=== PATIENT | male | born 1935 | race Caucasian/White ===

== ENCOUNTER → 2016-07-15 | Outpatient (CLI) | payer MEDICARE, BC ==
[2016-07-15 13:42] LABS: Blood Urea Nitrogen 25 mg/dL (9-20); Non-African American GFR(MDRD) 51 (>60 ml/min/1.73 sqM)
--- NOTE | 2016-07-15 16:40 | CT ---
EXAMINATION TYPE: CT abdomen w con DATE OF EXAM: 07/15/2016 4:04 PM COMPARISON: NONE HISTORY: 81-year-old male having right upper quadrant pain for the past few weeks TECHNIQUE: Contiguous axial scanning of the abdomen and pelvis following administration of 100 ml Omn ipaque 300 IV contrast. Delayed images through the kidneys and coronal/sagittal reconstructions perf ormed. CT DLP: 1946.1 mGycm Automated exposure control for dose reduction was used. FINDINGS: Heart is upper limits of normal in size without pericardial effusion. Chronic appearing interstitial changes in the lower lungs suggestive of interstitial fibrosis. No pleural effusion. Liver is borderline to mildly enlarged measuring 18.6 cm craniocaudal. No focal liver lesion is seen. Portal venous system is patent. No biliary ductal dilatation. Cystic change at the gallbladder fundus could represent a phrygian cap or area of adenomyomatosis. Adrenal glands, spleen, and atrophic pancreas show no gross abnormality. There is delayed excretion of contrast from the kidneys which will require correlation with patient's kidney function. Suspect bilateral parapelvic cysts. There is renal cortical thinning compatible wit h chronic medical renal disease. No dilated small bowel, free fluid, or free air. No mesenteric or retroperitoneal lymphadenopathy. There is moderate overall stool burden without pericolonic inflammatory change. Tiny fatty umbilical hernia. There is a small 8 mm chronic-appearing calcified focus along the anterior omentum. There is some nonspecific soft tissue stranding about the celiac axis and suggestion of some slight s oft tissue thickening along the common hepatic artery, axial images 30 and 31, coronal images 45 thro ugh 47, and sagittal images 62 through 72. There has been prior endovascular aorto biiliac stent graft. Lumens are patent. Bones: Degenerative changes of both SI joints and throughout the lumbar spine with grade 1 anterolist hesis at L4-L5. There may be sequestered disc fragment posterior to the L1 vertebral body. IMPRESSION: 1. BORDERLINE TO MILD HEPATOMEGALY. 2. THERE IS SOME NONSPECIFIC SOFT TISSUE DENSITY AROUND THE CELIAC AXIS EXTENDING ALONG THE COMMON HE PATIC ARTERY. THE CLINICAL SIGNIFICANCE IS UNCERTAIN BUT FINDINGS CAN BE SEEN IN THE SETTING OF A MED IUM VESSEL VASCULITIS. CLINICALLY CORRELATE. 3. DELAYED EXCRETION OF CONTRAST FROM THE KIDNEYS. CORRELATE WITH PATIENT'S KIDNEY FUNCTION TO EXCLUD E RICKY/CONTRAST-INDUCED NEPHROPATHY. SUSPECTED BILATERAL PARAPELVIC CYSTS. 4. MODERATE STOOL BURDEN. 5. POSSIBLE EXTRUDED AND SEQUESTERED DISC FRAGMENT POSTERIOR TO L1.
== END | disposition home or self-care (01) ==
LOC: RADCTMAIN 13:02
PROVIDERS: ATTEND Family Medicine
DX: R16.0 Hepatomegaly, not elsewhere classified (principal)
CPT/HCPCS: 82565; 84520; 74160; 36415; Q9967

== ENCOUNTER → 2018-08-23 | Outpatient (CLI) | payer MEDICARE ==
--- NOTE | 2018-08-23 14:54 | CT ---
EXAMINATION TYPE: CT chest wo con DATE OF EXAM: 08/23/2018 COMPARISON: EXAMINATION TYPE: CT chest wo con DATE OF EXAM: 08/23/2018 COMPARISON: CT of the abdomen 07/15/2016 HISTORY: Pulmonary nodule. CT DLP: 600.[address] of the chest was performed with lung and mediastinal window settings submitted. The la ck of contrast limits evaluation of the vascular, mediastinal and parenchymal structures including th e upper abdomen. LUNGS: The lungs are clear and free of infiltrate. No atelectasis. Right basilar pulmonary nodule is essentially unchanged measuring 7 mm currently versus 7 mm previously. No additional nodules or amaris s are identified. There is no evidence for infiltrate or atelectasis. No pleural effusion is identifi ed. There is moderate subpleural fibrosis identified throughout both lung cormier greatest within the upper lobes. There is mild bronchiectasis noted as well. No pleural effusion. No CT evidence of inte rstitial lung disease. MEDIASTINUM/HAILY: Ascending thoracic aortic aneurysm measuring 4.4 cm AP dimension. Coronary artery c alcifications. Mild cardiomegaly. No evidence for mediastinal mass. No lymph nodes greater than 1cm . UPPER ABDOMEN: Aortic stent graft partially imaged. Bilateral parapelvic renal cysts noted. OTHER: No significant other abnormality. IMPRESSION: 1. Stable right lower lobe pulmonary nodule. 2. Subpleural fibrosis.
== END | disposition home or self-care (01) ==
LOC: RADCTMAIN 13:32
PROVIDERS: ATTEND Family Medicine
DX: R91.1 Solitary pulmonary nodule (principal); J84.10 Pulmonary fibrosis, unspecified
CPT/HCPCS: 71250

== ENCOUNTER 2021-10-28 10:50 | Inpatient (IN) | payer MEDICARE ==
--- NOTE | 2021-10-28 13:41 | ED ---
General Adult HPI - General Chief complaint: Skin/Abscess/Foreign Body Stated complaint: L foot wound Time Seen by Provider: 10/28/21 13:30 Source: patient, RN notes reviewed, old records reviewed Mode of arrival: wheelchair Limitations: no limitations - History of Present Illness Initial comments: 86-year-old male presents to the emergency room with complaints of left foot ulcer worsening with drainage. He was sent by his doctor after wound treatment today for admission. Patient states he has no pain unless you push on the wounds. He denies any fevers, no nausea vomiting diarrhea, no chest pain or difficulty breathing. He states this has been ongoing wound for several months. He denies any recent antibiotic use. -: month(s) Location: left, lower extremity (foot) Radiation: non-radiation Severity scale (1-10): 0 Consistency: intermittent Improves with: immobilization Worsens with: other (palpation) Associated Symptoms: denies other symptoms Treatments Prior to Arrival: other (dressing change by doctor today) - Related Data Home Medications Medication Instructions Recorded Confirmed Apixaban [Eliquis] 2.5 mg PO DAILY 10/28/21 10/28/21 Furosemide [Lasix] 40 mg PO DAILY 10/28/21 10/28/21 HYDROcodone/APAP 7.5-325MG [[place] 1 tab PO Q12H PRN 10/28/21 10/28/21 7.5-325] Losartan Potassium 100 mg PO DAILY 10/28/21 10/28/21 Rosuvastatin [Crestor] 10 mg PO HS 10/28/21 10/28/21 amLODIPine [Norvasc] 10 mg PO DAILY 10/28/21 10/28/21 sitaGLIPtin [Januvia] 100 mg PO DAILY 10/28/21 10/28/21 Allergies Allergy/AdvReac Type Severity Reaction Status Date / Time nickel Allergy Unknown Verified 10/28/21 14:10 Sulfa (Sulfonamide Allergy Unknown Verified 10/28/21 14:10 Antibiotics) Review of Systems ROS Statement: Those systems with pertinent positive or pertinent negative responses have been documented in the HPI. ROS Other: All systems not noted in ROS Statement are negative. Past Medical History Past Medical History: Atrial Fibrillation, Diabetes Mellitus, Hypertension Additional Past Medical History / Comment(s): AAA History of Any Multi-Drug Resistant Organisms: None Reported Past Surgical History: Appendectomy, Orthopedic Surgery Additional Past Surgical History / Comment(s): abdominal stents from AAA Past Psychological History: No Psychological Hx Reported Smoking Status: Current every day smoker Past Alcohol Use History: None Reported Past Drug Use History: None Reported General Exam Limitations: no limitations General appearance: alert, in no apparent distress Neck exam: Absent: tenderness, meningismus Respiratory exam: Absent: respiratory distress, accessory muscle use Cardiovascular Exam: Present: regular rate Left Foot/Toe exam: Present: tenderness, erythema (Irregularly-shaped ulceration to the mid foot measuring approximately 5 cm x 4 cm; halux of great toe and second digit ulcers 1cm; dried scaled ulceration left lateral metatarsal 1cm) Neurovascular tendon exam: Absent: abnormal cap refill, extremity cold to touch, pallor, foot drop Neurological exam: Present: alert, oriented X3 Psychiatric exam: Present: normal affect, normal mood Skin exam: Present: warm, dry. Absent: cyanosis, diaphoretic, petechiae, pallor Course Vital Signs 10/28/21 10:57 Temperature 98.1 F Pulse Rate 80 Respiratory 14 Rate Blood Pressure 127/61 O2 Sat by Pulse 95 Oximetry Medical Decision Making - Medical Decision Making Vital signs are stable with no evidence of sepsis. Patient denies any fevers, nausea or vomiting. X-ray shows soft tissue edema of dorsal surface of left foot. There is no acute fracture noted however there are erosive changes involving the distal phalanx of the second digit suggestive of osteomyelitis. Patient was started on antibiotics in the ER. Infectious disease was placed on consult. Case discussed with Dr. Lloyd. - Lab Data Result diagrams: 10/28/21 14:17 10/28/21 14:17 Lab Results 10/28/21 10/28/21 Range/Units 14:17 14:17 WBC 8.1 (3.8-10.6) k/uL RBC 3.48 L (4.30-5.90) m/uL Hgb 10.8 L (13.0-17.5) gm/dL Hct 33.6 L (39.0-53.0) % MCV 96.5 (80.0-100.0) fL MCH 31.2 (25.0-35.0) pg MCHC 32.3 (31.0-37.0) g/dL RDW 16.6 H (11.5-15.5) % Plt Count 204 (150-450) k/uL MPV 8.4 Neutrophils % 71 % Lymphocytes % 15 % Monocytes % 7 % Eosinophils % 3 % Basophils % 0 % Neutrophils # 5.8 (1.3-7.7) k/uL Lymphocytes # 1.2 (1.0-4.8) k/uL Monocytes # 0.6 (0-1.0) k/uL Eosinophils # 0.2 (0-0.7) k/uL Basophils # 0.0 (0-0.2) k/uL Hypochromasia Slight Anisocytosis Slight Macrocytosis Slight Sodium 141 (137-145) mmol/L Potassium 4.8 (3.5-5.1) mmol/L Chloride 109 H (98-107) mmol/L Carbon Dioxide 26 (22-30) mmol/L Anion Gap 6 mmol/L BUN 38 H (9-20) mg/dL Creatinine 1.95 H (0.66-1.25) mg/dL Est GFR (CKD-EPI)AfAm 35 (>60 ml/min/1.73 sqM) Est GFR (CKD-EPI)NonAf 30 (>60 ml/min/1.73 sqM) Glucose 99 (74-99) mg/dL Calcium 8.5 (8.4-10.2) mg/dL Total Bilirubin 1.1 (0.2-1.3) mg/dL AST 31 (17-59) U/L ALT 14 (4-49) U/L Alkaline Phosphatase 85 (38-126) U/L Total Protein 7.6 (6.3-8.2) g/dL Albumin 3.8 (3.5-5.0) g/dL Disposition Clinical Impression: Osteomyelitis of toe of left foot Disposition: ADMITTED IP TO THIS [facility] Referrals: Varghese Nielson MD [Primary Care Provider] - 1-2 days Decision Date: 10/28/21 Decision Time: 14:30
--- NOTE | 2021-10-28 14:03 | XR ---
EXAMINATION TYPE: XR foot complete LT DATE OF EXAM: 10/28/2021 COMPARISON: NONE HISTORY: Soft tissue ulceration and edema TECHNIQUE: Three views are submitted. FINDINGS: The osseous structures are intact. There is no acute fracture or dislocation. Joint spaces are p reserved. Soft tissue edema with deformities along the dorsal surface of the soft tissue correlate fo r ulcerations. Calcaneal spurs are seen. Arthropathy of all MTP joints. No acute fracture. There is e rosive change involving the distal phalanx of the second digit. IMPRESSION: 1. Erosive change distal phalanx second digit suggestive of osteomyelitis.
[2021-10-28] MEDS ORDERED: VANCOMYCIN IV PER PHARMACY 1 EACH MISC MISCELLANE PRN (14:32)
[2021-10-28 14:46] LABS: Anisocytosis Slight; Basophils % (A) 0 %; Eosinophils # (A) 0.2 k/uL (0-0.7); Eosinophils % (A) 3 %; HCT 33.6 % (39.0-53.0); HGB 10.8 gm/dL (13.0-17.5); Hypochromasia Slight; Lymphocytes # (A) 1.2 k/uL (1.0-4.8); Lymphocytes % (A) 15 %; MCH 31.2 pg (25.0-35.0); MCHC 32.3 g/dL (31.0-37.0); MCV 96.5 fL (80.0-100.0); Macrocytosis Slight; Mean Platelet Volume 8.4; Monocytes # (A) 0.6 k/uL (0-1.0); Monocytes % (A) 7 %; Neutrophils # (A) 5.8 k/uL (1.3-7.7); Neutrophils % (A) 71 %; Platelet Count 204 k/uL (150-450); RBC 3.48 m/uL (4.30-5.90); RDW 16.6 % (11.5-15.5); WBC 8.1 k/uL (3.8-10.6)
[2021-10-28 15:04] LABS: Albumin 3.8 g/dL (3.5-5.0); Calcium 8.5 mg/dL (8.4-10.2); Total Bilirubin 1.1 mg/dL (0.2-1.3); Total Protein 7.6 g/dL (6.3-8.2)
[2021-10-28 15:06] LABS: Potassium 4.8 mmol/L (3.5-5.1)
[2021-10-28] MEDS ORDERED: VANCOMYCIN 2,000 MG in SODIUM CHLORIDE 0.9% 500 ML 500 ML IVPB ONE (15:30)
[2021-10-28] MEDS ORDERED: NALOXONE 0.4 MG/ML 1 ML VIAL IV PRN (15:32)
[2021-10-28] MEDS ORDERED: HYDROmorphone 0.5 MG/0.5 ML SYRINGE IVP PRN (17:05)
[2021-10-28 17:07] LABS: Glucose,Whole Blood 106 mg/dL (70-110)
[2021-10-28] MEDS: INSULIN ASPART (NovoLOG) 100 UNIT/ML VIAL SQ SCH ×2 (17:33→20:17)
[2021-10-28 20:13] LABS: Glucose,Whole Blood 147 mg/dL (70-110)
[2021-10-28] MEDS: ATORVASTATIN 20 MG TAB PO SCH (20:17)
--- NOTE | 2021-10-28 21:53 | HP ---
HISTORY AND PHYSICAL CHIEF COMPLAINT: Pain and swelling of the left foot. HISTORY OF PRESENT ILLNESS: This 86-year-old gentleman with a past medical history of diabetes type 2, hypertension, atrial fibrillation being followed Dr. Nielson in the outpatient setting, was complaining of left foot ulcer. The patient apparently attending Wound Care but the infection spread to the dorsum of the foot with some redness. The patient has also had severe pain and the patient had worsening drainage. The patient was sent to [facility] Emergency Room and the patient was admitted for further evaluation and treatment. There is no history of fever, rigors or chills. PAST MEDICAL HISTORY: History of diabetes, hypertension, atrial fibrillation. HOME MEDICATIONS: Reviewed, which include Januvia, Norvasc. Doses and rest of medication reviewed. ALLERGIES: INCLUDING NICKEL. FAMILY HISTORY: No history of heart disease or strokes. SOCIAL HISTORY: Current smoking. REVIEW OF SYSTEMS: 14 point review of systems is negative except as mentioned earlier. PHYSICAL EXAMINATION: Pulse is 80. Blood pressure is 126/61. Respiratory rate 14. HEENT: Conjunctivae normal. NECK: No JVD. CARDIOVASCULAR: S1, S2 muffled. RESPIRATION: Breath sounds diminished in the bases. No rhonchi. No crackles. ABDOMEN: Soft, obese. NECK: Significant pain and swelling and discharge and ulcer of the left foot with tenderness and cellulitis. SKIN: No ulcers, rashes or bleeding. JOINTS: No active deforming arthropathy. LABS: WBC 8.1, hemoglobin 10.8. IMPRESSION: 1. Diabetic foot, left with possible osteomyelitis with failure of outpatient treatment. 2. Diabetes mellitus, type 2. 3. Chronic kidney disease. 4. Atrial fibrillation, hypertension, history of abdominal aortic aneurysm. 5. Continued ongoing nicotine dependence. RECOMMENDATIONS AND DISCUSSION: This 86-year-old gentleman who presented with multiple complex medical issues, we will initiate intravenous vancomycin and obtain cultures. Infectious Disease evaluation. Resume the home medication. Monitor blood sugars closely. DVT prophylaxis. Symptomatic treatment. Prognosis guarded because of multiple complex medical issues and further recommendations to follow. MMODL / IJN: [id number] /
[2021-10-29] MEDS: HYDROcodone/APAP 7.5-325MG 1 EACH TAB PO PRN (04:50)
[2021-10-29 07:20] LABS: Glucose,Whole Blood 108 mg/dL (70-110)
[2021-10-29] MEDS: INSULIN ASPART (NovoLOG) 100 UNIT/ML VIAL SQ SCH ×4 (07:34→21:41)
[2021-10-29] MEDS: amLODIPine 10 MG TAB PO SCH (08:51)
[2021-10-29] MEDS: APIXABAN 2.5 MG TABLET PO SCH (08:51)
[2021-10-29] MEDS: FUROSEMIDE 40 MG TAB PO SCH (08:51)
[2021-10-29] MEDS: LOSARTAN 50 MG TAB PO SCH (08:51)
[2021-10-29] MEDS: LINAGLIPTIN 5 MG TABLET PO SCH (08:51)
[2021-10-29 09:09] LABS: Basophils # (A) 0.05 X 10*3/uL (0.00-0.10); Basophils % (A) 0.6 %; Eosinophils # (A) 0.25 X 10*3/uL (0.04-0.35); Eosinophils % (A) 2.9 %; HCT 32.9 % (39.6-50.0); Immature Grans, Automated 0.5 %; Lymphocytes # (A) 1.04 X 10*3/uL (0.90-5.00); Lymphocytes % (A) 11.9 %; MCH 29.2 pg (27.0-32.0); MCHC 30.4 g/dL (32.0-37.0); MCV 96.2 fL (80.0-97.0); Mean Platelet Volume 11.4 fL (9.5-12.2); Monocytes # (A) 0.77 X 10*3/uL (0.20-1.00); Monocytes % (A) 8.8 %; NRBC Per 100 WBC 0 /100 WBCS (0.0-0.0); Neutrophils # (A) 6.58 X 10*3/uL (1.80-7.70); Neutrophils % (A) 75.3 %; Platelet Count 207 X 10*3/uL (140-440); RBC 3.42 X 10*6/uL (4.40-5.60); RDW 16.7 % (11.5-14.5); WBC 8.73 X 10*3/uL (4.50-10.00)
[2021-10-29 09:21] LABS: African American GFR (CKD) 33.8 (60.0-200.0); Albumin 3.6 g/dL (3.8-4.9); Albumin/Globulin Ratio 1.16 (1.60-3.17); Anion Gap 10.8 mmol/L (10.00-18.00); BUN/Creat Ratio 17.75 Ratio (12.00-20.00); Blood Urea Nitrogen 35.5 mg/dL (9.0-27.0); C Reactive Protein 1.6 mg/dL (0.00-0.80); Calcium 8.7 mg/dL (8.7-10.3); Carbon Dioxide 25.2 mmol/L (20.0-27.5); Globulin 3.1 g/dL (1.6-3.3); Non-African American GFR(CKD) 29.1 (60.0-200.0); Potassium 4.4 mmol/L (3.5-5.5); Total Bilirubin 0.7 mg/dL (0.30-1.20); Total Protein 6.7 g/dL (6.2-8.2)
[2021-10-29 11:17] LABS: Glucose,Whole Blood 114 mg/dL (70-110)
[2021-10-29 11:53] LABS: Erythrocyte Sedimentation Rate 45 mm/Hr (0-20)
[2021-10-29] MEDS ORDERED: VANCOMYCIN 2,000 MG in SODIUM CHLORIDE 0.9% 500 ML 500 ML IVPB SCH (12:00)
--- NOTE | 2021-10-29 13:23 | P.CONS ---
History of Present Illness - Reason for Consult Consult date: 10/28/21 Osteomyelitis Requesting physician: Candido Moeller - Chief Complaint Left foot nonhealing wound x months - History of Present Illness Patient is 86 year old male with a past medical history significant for type 2 diabetes mellitus hypertension atrial fibrillation chronic smoking and a current smoker presenting to the ER for evaluation of a nonhealing wound to the left foot that apparently has been going on for couple of months now patient has been treated with the multiple courses of antibiotics without any improvement, and the patient presented to the hospital, patient denies having any fever or any chills and no fever was noticed on presentation to the hospital patient complaining of pain to the left foot more of a dull aching at times sharp 5-6 out of 10 and no radiation patient multiple small wounds and also respiratory the left foot and a necrotic area to the lateral aspect of his left foot, patient on presentation to hospital was afebrile did have a normal white count, patient did have a x-ray of the foot shows erosive changes distal phalanx second digit suggest Osteomyelitis, patient was started on vancomycin and Rocephin and admitted to the hospital infectious disease was consulted for further management of antibiotic therapy Review of Systems Positive point has been mentioned in the HPI rest of the systems are negative Past Medical History Past Medical History: Atrial Fibrillation, Diabetes Mellitus, Hypertension Additional Past Medical History / Comment(s): AAA History of Any Multi-Drug Resistant Organisms: None Reported Past Surgical History: Appendectomy, Orthopedic Surgery Additional Past Surgical History / Comment(s): abdominal stents from AAA Past Psychological History: No Psychological Hx Reported Smoking Status: Current every day smoker Past Alcohol Use History: None Reported Past Drug Use History: None Reported Medications and Allergies Home Medications Medication Instructions Recorded Confirmed Type Apixaban [Eliquis] 2.5 mg PO DAILY 10/28/21 10/28/21 History Furosemide [Lasix] 40 mg PO DAILY 10/28/21 10/28/21 History HYDROcodone/APAP 7.5-325MG [[place] 1 tab PO Q12H PRN 10/28/21 10/28/21 History 7.5-325] Losartan Potassium 100 mg PO DAILY 10/28/21 10/28/21 History Rosuvastatin [Crestor] 10 mg PO HS 10/28/21 10/28/21 History amLODIPine [Norvasc] 10 mg PO DAILY 10/28/21 10/28/21 History sitaGLIPtin [Januvia] 100 mg PO DAILY 10/28/21 10/28/21 History Allergies Allergy/AdvReac Type Severity Reaction Status Date / Time nickel Allergy Unknown Verified 10/28/21 14:10 Sulfa (Sulfonamide Allergy Unknown Verified 10/28/21 14:10 Antibiotics) Physical Exam Vitals: Vital Signs Temp Pulse Resp BP Pulse Ox 10/28/21 16:01 85 16 146/63 96 10/28/21 10:57 98.1 F 80 14 127/61 95 Intake and Output 10/28/21 10/28/21 10/28/21 06:59 14:59 22:59 Other: Weight 102.058 kg GENERAL DESCRIPTION: An elderly male lying in bed, no distress. No tachypnea or accessory muscle of respiration use. HEENT: Shows Pallor , no scleral icterus. Oral mucous membrane is dry. No pharyngeal erythema or thrush NECK: Trachea central, no thyromegaly. LUNGS: Unlabored breathing. Clear to auscultation anteriorly. No wheeze or crackle. HEART: S1, S2, regular rate and rhythm. No loud murmur ABDOMEN: Soft, no tenderness , guarding or rigidity, no organomegaly EXTREMITIES: Left foot he did have a swelling and some redness induration multiple superficial wound and some slough tissue SKIN: No rash, no masses palpable. NEUROLOGICAL: The patient is awake, alert, oriented x3, mood and affect normal. Results CBC & Chem 7: 10/29/21 06:27 10/29/21 06:27 Labs: Abnormal Lab Results - Last 24 Hours (Table) 10/28/21 10/28/21 Range/Units 14:17 14:17 RBC 3.48 L (4.30-5.90) m/uL Hgb 10.8 L (13.0-17.5) gm/dL Hct 33.6 L (39.0-53.0) % RDW 16.6 H (11.5-15.5) % Chloride 109 H (98-107) mmol/L BUN 38 H (9-20) mg/dL Creatinine 1.95 H (0.66-1.25) mg/dL Assessment and Plan (1) Osteomyelitis of toe of left foot Current Visit: Yes Status: Acute Code(s): M86.9 - OSTEOMYELITIS, UNSPECIFIED SNOMED Code(s): 989125805 Plan: 1patient is in the hospital with a nonhealing wounds to his left foot in this patient did have multiple superficial ulceration on the dorsum aspect of the left foot with some secondary selected and accordingly to the left foot lateral border high clinical suspicious for underlying arterial insufficiency in this patient who do have a history of smoking and continued to smoke failing outpatient oral antibiotic therapy 2patient with renal insufficiency high risk of nephrotoxicity 3patient to continue with the Rocephin and vancomycin. 4patient will benefit from vascular surgical evaluation. 5local wound care with the [facility] follow moist dressing change daily We will follow on clinical condition and cultures to further adjust medication if needed Thank you for this consultation will follow this patient with you Time with Patient: Greater than 30
[2021-10-29 16:24] LABS: Glucose,Whole Blood 116 mg/dL (70-110)
--- NOTE | 2021-10-29 20:12 | P.PN ---
Subjective Progress Note Date: 10/29/21 86 year old male with a past medical history significant for type 2 diabetes mellitus hypertension atrial fibrillation chronic smoking and a current smoker presenting to the ER for evaluation of a nonhealing wound to the left foot that apparently has been going on for couple of months now patient has been treated with the multiple courses of antibiotics without any improvement, and the patient presented to the hospital, patient denies having any fever or any chills and no fever was noticed on presentation to the hospital patient complaining of pain to the left foot more of a dull aching at times sharp 5-6 out of 10 and no radiation patient multiple small wounds and also respiratory the left foot and a necrotic area to the lateral aspect of his left foot, patient on presentation to hospital was afebrile did have a normal white count, patient did have a x-ray of the foot shows erosive changes distal phalanx second digit suggest Osteomyelitis, patient was started on vancomycin and Rocephin and admitted to the hospital infectious disease was consulted for further management of antibiotic therapy Objective - Vital Signs Vital signs: Vital Signs Temp 98.5 F 10/29/21 15:48 Pulse 63 10/29/21 15:48 Resp 17 10/29/21 15:48 BP 135/74 10/29/21 15:48 Pulse Ox 93 L 10/29/21 15:48 FiO2 Intake & Output 10/28/21 10/29/21 10/29/21 18:59 06:59 18:59 Output Total 900 Balance -900 Weight 102.058 kg Output: Urine 900 Other: # Voids 3 3 - Exam - Constitutional General appearance: Present: average body habitus, cooperative, no acute distress - EENT Eyes: Present: anicteric sclerae, EOMI, PERRLA, normal appearance ENT: Present: hearing grossly normal, normal oropharynx Ears: bilateral: normal - Neck Neck: Present: normal ROM. Absent: lymphadenopathy, rigidity, thyromegaly Carotids: negative: bruit present Thyroid: bilateral: normal size, negative: enlarged, nodule - Respiratory Respiratory: bilateral: CTA, negative: rales, rhonchi, wheezing - Cardiovascular Rhythm: regular Heart sounds: normal: S1, S2 Abnormal Heart Sounds: Absent: systolic murmur, diastolic murmur - Gastrointestinal General gastrointestinal: Present: normal bowel sounds, soft. Absent: distended, organomegaly, tenderness - Genitourinary Genitourinary Comment(s): deferred - Integumentary Integumentary: Present: normal turgor. Absent: jaundiced, rash, ulcer - Neurologic Neurologic: Present: CNII-XII intact. Absent: focal deficits - Musculoskeletal Musculoskeletal: Present: gait normal, strength equal bilaterally - Psychiatric Psychiatric: Present: A&O x's 3, appropriate affect, intact judgment & insight - Labs CBC & Chem 7: 10/29/21 06:27 10/29/21 06:27 Labs: Abnormal Lab Results - Last 24 Hours (Table) 10/28/21 10/29/21 10/29/21 Range/Units 20:12 06:27 06:27 RBC 3.42 L (4.40-5.60) X 10*6/uL Hgb 10.0 L (13.0-17.0) g/dL Hct 32.9 L (39.6-50.0) % MCHC 30.4 L (32.0-37.0) g/dL RDW 16.7 H (11.5-14.5) % ESR 45 H (0-20) mm/Hr BUN 35.5 H (9.0-27.0) mg/dL Creatinine 2.0 H (0.6-1.5) mg/dL Est GFR (CKD-EPI)AfAm 33.8 L (60.0-200.0) Est GFR (CKD-EPI)NonAf 29.1 L (60.0-200.0) POC Glucose (mg/dL) 147 H (70-110) mg/dL C-Reactive Protein 1.60 H (0.00-0.80) mg/dL Albumin 3.6 L (3.8-4.9) g/dL Albumin/Globulin Ratio 1.16 L (1.60-3.17) g/dL 10/29/21 Range/Units 11:16 RBC (4.40-5.60) X 10*6/uL Hgb (13.0-17.0) g/dL Hct (39.6-50.0) % MCHC (32.0-37.0) g/dL RDW (11.5-14.5) % ESR (0-20) mm/Hr BUN (9.0-27.0) mg/dL Creatinine (0.6-1.5) mg/dL Est GFR (CKD-EPI)AfAm (60.0-200.0) Est GFR (CKD-EPI)NonAf (60.0-200.0) POC Glucose (mg/dL) 114 H (70-110) mg/dL C-Reactive Protein (0.00-0.80) mg/dL Albumin (3.8-4.9) g/dL Albumin/Globulin Ratio (1.60-3.17) g/dL Microbiology - Last 24 Hours (Table) 10/28/21 14:17 Gram Stain - Preliminary Foot - Left Wound Culture - Preliminary Gram Neg Bacilli 10/28/21 17:48 Gram Stain - Preliminary Foot - Left Wound Culture - Preliminary Assessment and Plan Assessment: 1. Osteomyelitis left foot suspicious for underlying arterial insufficiency in this patient who do have a history of smoking and continued to smoke failing outpatient oral antibiotic therapy patient with renal insufficiency high risk of nephrotoxicity patient to continue with the Rocephin and daptomycin. patient will benefit from vascular surgical evaluation, per ID recommendations. local wound care with the [facility] follow moist dressing change daily 2. Diabetes mellitus type 2; we will monitor Accu-Cheks every before meals and at bedtime with insulin sliding scale; continue with home dose of Tradjenta 5 mg daily 3. Atrial fibrillation; currently not on any rate controlling medication; continue with anticoagulation with [place] 2.5 mg daily 4. Hypertension; losartan 100 mg daily; Norvasc 10 mg daily 5. Chronic kidney disease; avoid nephrotoxins; monitor renal function and electrolytes
[2021-10-29 20:58] LABS: Glucose,Whole Blood 134 mg/dL (70-110)
[2021-10-29] MEDS: ATORVASTATIN 20 MG TAB PO SCH (21:52)
[2021-10-30 06:34] LABS: African American GFR (CKD) 35 (>60 ml/min/1.73 sqM); Anion Gap 7 mmol/L; Blood Urea Nitrogen 39 mg/dL (9-20); Calcium 8.5 mg/dL (8.4-10.2); Carbon Dioxide 27 mmol/L (22-30); Chloride 109 mmol/L (98-107); Glucose 103 mg/dL (74-99); Non-African American GFR(CKD) 30 (>60 ml/min/1.73 sqM); Potassium 4.3 mmol/L (3.5-5.1); Sodium 143 mmol/L (137-145)
[2021-10-30 07:16] LABS: Glucose,Whole Blood 111 mg/dL (70-110)
[2021-10-30] MEDS: INSULIN ASPART (NovoLOG) 100 UNIT/ML VIAL SQ SCH ×4 (07:35→20:59)
[2021-10-30] MEDS: LOSARTAN 50 MG TAB PO SCH (07:39)
[2021-10-30] MEDS: amLODIPine 10 MG TAB PO SCH (07:39)
[2021-10-30] MEDS: FUROSEMIDE 40 MG TAB PO SCH (07:39)
[2021-10-30] MEDS: LINAGLIPTIN 5 MG TABLET PO SCH (07:39)
[2021-10-30] MEDS: APIXABAN 2.5 MG TABLET PO SCH (07:39)
[2021-10-30 08:42] LABS: Basophils # (A) 0.04 X 10*3/uL (0.00-0.10); Basophils % (A) 0.6 %; Eosinophils # (A) 0.27 X 10*3/uL (0.04-0.35); Eosinophils % (A) 3.8 %; HCT 31.5 % (39.6-50.0); HGB 9.6 g/dL (13.0-17.0); Immature Grans, Automated 0.4 %; Lymphocytes # (A) 0.83 X 10*3/uL (0.90-5.00); Lymphocytes % (A) 11.6 %; MCH 29.4 pg (27.0-32.0); MCHC 30.5 g/dL (32.0-37.0); MCV 96.3 fL (80.0-97.0); Mean Platelet Volume 11.4 fL (9.5-12.2); Monocytes # (A) 0.67 X 10*3/uL (0.20-1.00); Monocytes % (A) 9.3 %; NRBC Per 100 WBC 0 /100 WBCS (0.0-0.0); Neutrophils # (A) 5.33 X 10*3/uL (1.80-7.70); Neutrophils % (A) 74.3 %; Platelet Count 206 X 10*3/uL (140-440); RBC 3.27 X 10*6/uL (4.40-5.60); RDW 16.6 % (11.5-14.5); WBC 7.17 X 10*3/uL (4.50-10.00)
--- NOTE | 2021-10-30 10:06 | P.GSCN ---
History of Present Illness History of present illness: 86-year-old diabetic male patient has been admitted with history of chronic wound left dorsal suspect patient was treated in the past with antibiotic not responding well no fever or chills patient has a wound on the dorsum spent the left foot with some devitalized tissue. Plan is debridement of the wound and deep culture sent is on IV antibiotic under care of infectious disease Medical history history of diabetes hypertension atrial fibrillation Neck examination neck is supple no bruit appreciated Chest is clear few rhonchi at the lung bases Abdomen soft nontender Vascular 1+ femoral. The pinnae palpable patient has a chronic wound on the dorsal aspect of the left foot with some devitalized tissue Plan is debridement and deep culture follow with you Past Medical History Past Medical History: Atrial Fibrillation, Diabetes Mellitus, Hypertension Additional Past Medical History / Comment(s): AAA History of Any Multi-Drug Resistant Organisms: None Reported Past Surgical History: Appendectomy, Orthopedic Surgery Additional Past Surgical History / Comment(s): abdominal stents from AAA Past Psychological History: No Psychological Hx Reported Smoking Status: Current every day smoker Past Alcohol Use History: None Reported Past Drug Use History: None Reported Medications and Allergies Home Medications Medication Instructions Recorded Confirmed Type Apixaban [Eliquis] 2.5 mg PO DAILY 10/28/21 10/28/21 History Furosemide [Lasix] 40 mg PO DAILY 10/28/21 10/28/21 History HYDROcodone/APAP 7.5-325MG [[place] 1 tab PO Q12H PRN 10/28/21 10/28/21 History 7.5-325] Losartan Potassium 100 mg PO DAILY 10/28/21 10/28/21 History Rosuvastatin [Crestor] 10 mg PO HS 10/28/21 10/28/21 History amLODIPine [Norvasc] 10 mg PO DAILY 10/28/21 10/28/21 History sitaGLIPtin [Januvia] 100 mg PO DAILY 10/28/21 10/28/21 History Allergies Allergy/AdvReac Type Severity Reaction Status Date / Time nickel Allergy Unknown Verified 10/28/21 14:10 Sulfa (Sulfonamide Allergy Unknown Verified 10/28/21 14:10 Antibiotics) Surgical - Exam Vital Signs Temp Pulse Resp BP Pulse Ox 98.1 F 80 14 127/61 95 10/28/21 10:57 10/28/21 10:57 10/28/21 10:57 10/28/21 10:57 10/28/21 10:57 Results - Labs 10/30/21 05:22 10/30/21 05:22 Abnormal Lab Results - Last 24 Hours (Table) 10/29/21 10/29/21 10/29/21 Range/Units 06:27 11:16 16:22 RBC (4.40-5.60) X 10*6/uL Hgb (13.0-17.0) g/dL Hct (39.6-50.0) % MCHC (32.0-37.0) g/dL RDW (11.5-14.5) % Lymphocytes # (0.90-5.00) X 10*3/uL ESR 45 H (0-20) mm/Hr Chloride (98-107) mmol/L BUN (9-20) mg/dL Creatinine (0.66-1.25) mg/dL Glucose (74-99) mg/dL POC Glucose (mg/dL) 114 H 116 H (70-110) mg/dL 10/29/21 10/30/21 10/30/21 Range/Units 20:56 05:22 05:22 RBC 3.27 L (4.40-5.60) X 10*6/uL Hgb 9.6 L (13.0-17.0) g/dL Hct 31.5 L (39.6-50.0) % MCHC 30.5 L (32.0-37.0) g/dL RDW 16.6 H (11.5-14.5) % Lymphocytes # 0.83 L (0.90-5.00) X 10*3/uL ESR (0-20) mm/Hr Chloride 109 H (98-107) mmol/L BUN 39 H (9-20) mg/dL Creatinine 1.95 H (0.66-1.25) mg/dL Glucose 103 H (74-99) mg/dL POC Glucose (mg/dL) 134 H (70-110) mg/dL 10/30/21 Range/Units 07:15 RBC (4.40-5.60) X 10*6/uL Hgb (13.0-17.0) g/dL Hct (39.6-50.0) % MCHC (32.0-37.0) g/dL RDW (11.5-14.5) % Lymphocytes # (0.90-5.00) X 10*3/uL ESR (0-20) mm/Hr Chloride (98-107) mmol/L BUN (9-20) mg/dL Creatinine (0.66-1.25) mg/dL Glucose (74-99) mg/dL POC Glucose (mg/dL) 111 H (70-110) mg/dL Microbiology - Last 24 Hours (Table) 10/28/21 17:48 Gram Stain - Preliminary Foot - Left Wound Culture - Preliminary Gram Neg Bacilli Group D Enterococcus 10/28/21 14:17 Blood Culture - Preliminary Blood No Growth after 24 hours 10/28/21 14:17 Blood Culture - Preliminary Blood No Growth after 24 hours 10/28/21 14:17 Gram Stain - Preliminary Foot - Left Wound Culture - Preliminary Gram Neg Bacilli Diabetes panel 10/30/21 Range/Units 05:22 Sodium 143 (137-145) mmol/L Potassium 4.3 (3.5-5.1) mmol/L Chloride 109 H (98-107) mmol/L Carbon Dioxide 27 (22-30) mmol/L BUN 39 H (9-20) mg/dL Creatinine 1.95 H (0.66-1.25) mg/dL Glucose 103 H (74-99) mg/dL Calcium 8.5 (8.4-10.2) mg/dL Calcium panel 10/30/21 Range/Units 05:22 Calcium 8.5 (8.4-10.2) mg/dL Pituitary panel 10/30/21 Range/Units 05:22 Sodium 143 (137-145) mmol/L Potassium 4.3 (3.5-5.1) mmol/L Chloride 109 H (98-107) mmol/L Carbon Dioxide 27 (22-30) mmol/L BUN 39 H (9-20) mg/dL Creatinine 1.95 H (0.66-1.25) mg/dL Glucose 103 H (74-99) mg/dL Calcium 8.5 (8.4-10.2) mg/dL Adrenal panel 10/30/21 Range/Units 05:22 Sodium 143 (137-145) mmol/L Potassium 4.3 (3.5-5.1) mmol/L Chloride 109 H (98-107) mmol/L Carbon Dioxide 27 (22-30) mmol/L BUN 39 H (9-20) mg/dL Creatinine 1.95 H (0.66-1.25) mg/dL Glucose 103 H (74-99) mg/dL Calcium 8.5 (8.4-10.2) mg/dL
[2021-10-30] MEDS ORDERED: LIDOCAINE 1% INJ 10MG/ML (5 ML VIAL-PF) SQ ONE ×2 (10:11→10:26)
--- NOTE | 2021-10-30 10:55 | P.PCN ---
Description of Procedure: Preoperative diagnoses is diabetic wound left foot dorsum aspect measurement is 5 x 2 cm wound on the lateral aspect the foot is 2 x 2 CM Postoperative wound of the dorsal aspect of the debridement is 5 x 2 x 0.5 cm and lateral aspect of the foot wound is 2 x 2 by 0.5 cm Left foot was prepped and draped applied usual sterile manner 1% lidocaine were infiltrated using sharp knife did the selective debridement of devitalized tissue was removed from the dorsal suspect the foot down to separate his tissue no active bleeding was noted in the there is callus on the lateral aspect of the foot which was excised with a knife down to subcu tissue Was removed and some devitalized tissue was removed subcutaneously deep culture was taken sent for culture and sensitivity wound was irrigated with saline medihoney gel applied to the wound dressing applied patient for the procedure well plan is to change dressing daily with medihoney gel
[2021-10-30 11:18] LABS: Glucose,Whole Blood 143 mg/dL (70-110)
[2021-10-30 16:44] LABS: Glucose,Whole Blood 95 mg/dL (70-110)
[2021-10-30] MEDS ORDERED: MELATONIN 3 MG TABLET PO PRN (18:54)
[2021-10-30 20:39] LABS: Glucose,Whole Blood 163 mg/dL (70-110)
--- NOTE | 2021-10-30 20:44 | P.PN ---
Subjective Progress Note Date: 10/30/21 Principal diagnosis: Osteomyelitis left foot Infected diabetic left foot ulcer; status post debridement 86 year old male with a past medical history significant for type 2 diabetes mellitus hypertension atrial fibrillation chronic smoking and a current smoker presenting to the ER for evaluation of a nonhealing wound to the left foot that apparently has been going on for couple of months now patient has been treated with the multiple courses of antibiotics without any improvement, and the patient presented to the hospital, patient denies having any fever or any chills and no fever was noticed on presentation to the hospital patient compl aining of pain to the left foot more of a dull aching at times sharp 5-6 out of 10 and no radiation patient multiple small wounds and also respiratory the left foot and a necrotic area to the lateral aspect of his left foot, patient on presentation to hospital was afebrile did have a normal white count, patient did have a x-ray of the foot shows erosive changes distal phalanx second digit suggest Osteomyelitis, patient was started on vancomycin and Rocephin and admitted to the hospital infectious disease was consulted for further management of antibiotic therapy 10/30/2021 Patient is seen and evaluated sitting up in bed; reports some uncontrolled pain post debridement Vital signs are reviewed and remained stable; remains on IV antibiotics in form of Rocephin and daptomycin Laboratory review shows stable WBC of 7.17, hemoglobin 9.6, platelet count of 206, sodium 143, potassium 4.3, BUN/creatinine of 39/1.95 which is improved from 35.5/2.0 yesterday Objective - Vital Signs Vital signs: Vital Signs Temp 98.0 F 10/30/21 14:00 Pulse 58 L 10/30/21 14:00 Resp 16 10/30/21 14:00 BP 119/72 10/30/21 14:00 Pulse Ox 100 10/30/21 14:00 FiO2 Intake & Output 10/29/21 10/30/21 10/30/21 18:59 06:59 18:59 Intake Total 1290 Output Total 650 Balance 640 Intake: Intake, IV Titration 50 Amount DAPTOmycin 600 mg In 50 Sodium Chloride 0.9% 50 ml @ 100 mls/hr IVPB Q24HR [facility] Rx#:[id number] Oral 1240 Output: Urine 650 Other: # Voids 4 600 - Exam - Constitutional General appearance: Present: average body habitus, cooperative, no acute distress - EENT Eyes: Present: anicteric sclerae, EOMI, PERRLA, normal appearance ENT: Present: hearing grossly normal, normal oropharynx Ears: bilateral: normal - Neck Neck: Present: normal ROM. Absent: lymphadenopathy, rigidity, thyromegaly Carotids: negative: bruit present Thyroid: bilateral: normal size, negative: enlarged, nodule - Respiratory Respiratory: bilateral: CTA, negative: rales, rhonchi, wheezing - Cardiovascular Rhythm: regular Heart sounds: normal: S1, S2 Abnormal Heart Sounds: Absent: systolic murmur, diastolic murmur - Gastrointestinal General gastrointestinal: Present: normal bowel sounds, soft. Absent: distended, organomegaly, tenderness - Genitourinary Genitourinary Comment(s): deferred - Integumentary Integumentary: Present: normal turgor. Absent: jaundiced, rash, ulcer - Neurologic Neurologic: Present: CNII-XII intact. Absent: focal deficits - Musculoskeletal Musculoskeletal: Present: gait normal, strength equal bilaterally - Psychiatric Psychiatric: Present: A&O x's 3, appropriate affect, intact judgment & insight - Labs CBC & Chem 7: 10/30/21 05:22 10/30/21 05:22 Labs: Abnormal Lab Results - Last 24 Hours (Table) 10/29/21 10/30/21 10/30/21 Range/Units 20:56 05:22 05:22 RBC 3.27 L (4.40-5.60) X 10*6/uL Hgb 9.6 L (13.0-17.0) g/dL Hct 31.5 L (39.6-50.0) % MCHC 30.5 L (32.0-37.0) g/dL RDW 16.6 H (11.5-14.5) % Lymphocytes # 0.83 L (0.90-5.00) X 10*3/uL Chloride 109 H (98-107) mmol/L BUN 39 H (9-20) mg/dL Creatinine 1.95 H (0.66-1.25) mg/dL Glucose 103 H (74-99) mg/dL POC Glucose (mg/dL) 134 H (70-110) mg/dL 10/30/21 10/30/21 Range/Units 07:15 11:16 RBC (4.40-5.60) X 10*6/uL Hgb (13.0-17.0) g/dL Hct (39.6-50.0) % MCHC (32.0-37.0) g/dL RDW (11.5-14.5) % Lymphocytes # (0.90-5.00) X 10*3/uL Chloride (98-107) mmol/L BUN (9-20) mg/dL Creatinine (0.66-1.25) mg/dL Glucose (74-99) mg/dL POC Glucose (mg/dL) 111 H 143 H (70-110) mg/dL Microbiology - Last 24 Hours (Table) 10/28/21 14:17 Blood Culture - Preliminary Blood No Growth after 48 hours 10/28/21 14:17 Blood Culture - Preliminary Blood No Growth after 48 hours 10/28/21 14:17 Gram Stain - Final Foot - Left Wound Culture - Final Enterobacter cloacae 10/28/21 17:48 Gram Stain - Preliminary Foot - Left Wound Culture - Preliminary Gram Neg Bacilli Group D Enterococcus Assessment and Plan Assessment: 1. Osteomyelitis left foot suspicious for underlying arterial insufficiency in this patient who do have a history of smoking and continued to smoke failing outpatient oral antibiotic therapy patient with renal insufficiency high risk of nephrotoxicity patient to continue with the Rocephin and daptomycin. patient will benefit from vascular surgical evaluation, per ID recommendations. local wound care with the [facility] follow moist dressing change daily 2. Diabetes mellitus type 2; we will monitor Accu-Cheks every before meals and at bedtime with insulin sliding scale; continue with home dose of Tradjenta 5 mg daily 3. Atrial fibrillation; currently not on any rate controlling medication; continue with anticoagulation with [place] 2.5 mg daily 4. Hypertension; losartan 100 mg daily; Norvasc 10 mg daily 5. Chronic kidney disease; avoid nephrotoxins; monitor renal function and electrolytes
[2021-10-30] MEDS: ATORVASTATIN 20 MG TAB PO SCH (20:59)
--- NOTE | 2021-10-30 23:31 | P.PN ---
Subjective Progress Note Date: 10/29/21 Principal diagnosis: Left diabetic foot infection Patient is 86-year-old male with a past medical history significant for diabetes mellitus history of smoking and continued to smoke did have a chronic nonhealing wound to the left foot with secondary cellulitis. On today's evaluation that is 10/29/2021, patient denies having any fever, the patient is still complaining of some pain to the left foot but no worsening, denies any chest pain or shortness of breath or cough no abdominal pain no diarrhea Objective - Vital Signs Vital signs: Vital Signs Temp 98.5 F 10/29/21 08:00 Pulse 73 10/29/21 08:00 Resp 17 10/29/21 08:00 BP 143/72 10/29/21 08:00 Pulse Ox 97 10/29/21 08:00 FiO2 Intake & Output 10/28/21 10/29/21 10/29/21 18:59 06:59 18:59 Output Total 900 Balance -900 Weight 102.058 kg Output: Urine 900 Other: # Voids 3 3 - Exam GENERAL DESCRIPTION: An elderly male lying in bed in no distress RESPIRATORY SYSTEM: Unlabored breathing , decreased breath sounds at bases HEART: S1 S2 regular rate and rhythm , ABDOMEN: Soft , no tenderness EXTREMITIES: Left foot dorsum with multiple wound swelling and redness - Labs CBC & Chem 7: 10/30/21 05:22 10/30/21 05:22 Labs: Abnormal Lab Results - Last 24 Hours (Table) 10/28/21 10/28/21 10/28/21 Range/Units 14:17 14:17 20:12 RBC 3.48 L (4.30-5.90) m/uL Hgb 10.8 L (13.0-17.5) gm/dL Hct 33.6 L (39.0-53.0) % MCHC (32.0-37.0) g/dL RDW 16.6 H (11.5-15.5) % ESR (0-20) mm/Hr Chloride 109 H (98-107) mmol/L BUN 38 H (9-20) mg/dL Creatinine 1.95 H (0.66-1.25) mg/dL Est GFR (CKD-EPI)AfAm (60.0-200.0) Est GFR (CKD-EPI)NonAf (60.0-200.0) POC Glucose (mg/dL) 147 H (70-110) mg/dL C-Reactive Protein (0.00-0.80) mg/dL Albumin (3.8-4.9) g/dL Albumin/Globulin Ratio (1.60-3.17) g/dL 10/29/21 10/29/21 10/29/21 Range/Units 06:27 06:27 11:16 RBC 3.42 L (4.30-5.90) m/uL Hgb 10.0 L (13.0-17.5) gm/dL Hct 32.9 L (39.0-53.0) % MCHC 30.4 L (32.0-37.0) g/dL RDW 16.7 H (11.5-15.5) % ESR 45 H (0-20) mm/Hr Chloride (98-107) mmol/L BUN 35.5 H (9-20) mg/dL Creatinine 2.0 H (0.66-1.25) mg/dL Est GFR (CKD-EPI)AfAm 33.8 L (60.0-200.0) Est GFR (CKD-EPI)NonAf 29.1 L (60.0-200.0) POC Glucose (mg/dL) 114 H (70-110) mg/dL C-Reactive Protein 1.60 H (0.00-0.80) mg/dL Albumin 3.6 L (3.8-4.9) g/dL Albumin/Globulin Ratio 1.16 L (1.60-3.17) g/dL Microbiology - Last 24 Hours (Table) 10/28/21 14:17 Gram Stain - Preliminary Foot - Left Wound Culture - Preliminary Gram Neg Bacilli 10/28/21 17:48 Gram Stain - Preliminary Foot - Left Wound Culture - Preliminary Assessment and Plan (1) Osteomyelitis of toe of left foot Current Visit: Yes Status: Acute Code(s): M86.9 - OSTEOMYELITIS, UNSPECIFIED SNOMED Code(s): 137452922 Plan: 1patient is in the hospital with a nonhealing wounds to his left foot in this patient did have multiple superficial ulceration on the dorsum aspect of the left foot with some secondary selected and accordingly to the left foot lateral border high clinical suspicious for underlying arterial insufficiency in this patient who do have a history of smoking and continued to smoke failing outpatient oral antibiotic therapy 2patient with renal insufficiency high risk of nephrotoxicity 3 vascular surgical has been consulted for debridement and deep cultures thus vascular workup. 4patient to continue with Rocephin however we'll discontinue vancomycin and start the patient on daptomycin because of slight worsening of the kidney function 5local wound care with the [facility] follow moist dressing change daily Time with Patient: Less than 30
--- NOTE | 2021-10-30 23:33 | P.PN ---
Subjective Progress Note Date: 10/30/21 Principal diagnosis: Left diabetic foot infection Patient is 86-year-old male with a past medical history significant for diabetes mellitus history of smoking and continued to smoke did have a chronic nonhealing wound to the left foot with secondary cellulitis. Patient is status post surgical debridement and deep culture by vascular surgery on 10/30/2021 On today's evaluation that is 10/30/2021, patient remains to be afebrile, the patient is complaining of pain to the left foot after debridement this morning, the patient denies any chest pain or shortness of breath or cough no abdominal pain no diarrhea Objective - Vital Signs Vital signs: Vital Signs Temp 97.9 F 10/30/21 19:49 Pulse 60 10/30/21 19:49 Resp 16 10/30/21 19:49 BP 125/75 10/30/21 19:49 Pulse Ox 96 10/30/21 19:49 FiO2 Intake & Output 10/30/21 10/30/21 10/31/21 06:59 18:59 06:59 Intake Total 1290 540 Output Total 650 800 Balance 640 -260 Intake: Intake, IV Titration 50 Amount DAPTOmycin 600 mg In 50 Sodium Chloride 0.9% 50 ml @ 100 mls/hr IVPB Q24HR [facility] Rx#:[id number] Oral 1240 540 Output: Urine 650 800 Other: # Voids 600 - Exam GENERAL DESCRIPTION: An elderly male lying in bed in no distress RESPIRATORY SYSTEM: Unlabored breathing , decreased breath sounds at bases HEART: S1 S2 regular rate and rhythm , ABDOMEN: Soft , no tenderness EXTREMITIES: Left foot is currently dressed no drainage on the dressing - Labs CBC & Chem 7: 10/30/21 05:22 10/30/21 05:22 Labs: Abnormal Lab Results - Last 24 Hours (Table) 10/30/21 10/30/21 10/30/21 Range/Units 05:22 05:22 07:15 RBC 3.27 L (4.40-5.60) X 10*6/uL Hgb 9.6 L (13.0-17.0) g/dL Hct 31.5 L (39.6-50.0) % MCHC 30.5 L (32.0-37.0) g/dL RDW 16.6 H (11.5-14.5) % Lymphocytes # 0.83 L (0.90-5.00) X 10*3/uL Chloride 109 H (98-107) mmol/L BUN 39 H (9-20) mg/dL Creatinine 1.95 H (0.66-1.25) mg/dL Glucose 103 H (74-99) mg/dL POC Glucose (mg/dL) 111 H (70-110) mg/dL 10/30/21 10/30/21 Range/Units 11:16 20:37 RBC (4.40-5.60) X 10*6/uL Hgb (13.0-17.0) g/dL Hct (39.6-50.0) % MCHC (32.0-37.0) g/dL RDW (11.5-14.5) % Lymphocytes # (0.90-5.00) X 10*3/uL Chloride (98-107) mmol/L BUN (9-20) mg/dL Creatinine (0.66-1.25) mg/dL Glucose (74-99) mg/dL POC Glucose (mg/dL) 143 H 163 H (70-110) mg/dL Microbiology - Last 24 Hours (Table) 10/28/21 17:48 Gram Stain - Preliminary Foot - Left Wound Culture - Preliminary Enterobacter cloacae Group D Enterococcus 10/30/21 10:38 Wound Culture - Preliminary Foot - Left 10/30/21 10:38 Anaerobic Culture - Preliminary Foot - Left 10/28/21 14:17 Blood Culture - Preliminary Blood No Growth after 48 hours 10/28/21 14:17 Blood Culture - Preliminary Blood No Growth after 48 hours 10/28/21 14:17 Gram Stain - Final Foot - Left Wound Culture - Final Enterobacter cloacae Assessment and Plan (1) Osteomyelitis of toe of left foot Current Visit: Yes Status: Acute Code(s): M86.9 - OSTEOMYELITIS, UNSPECIFIED SNOMED Code(s): 147107663 Plan: 1patient is in the hospital with a nonhealing wounds to his left foot in this patient did have multiple superficial ulceration on the dorsum aspect of the left foot with some secondary selected and accordingly to the left foot lateral border high clinical suspicious for underlying arterial insufficiency in this patient who do have a history of smoking and continued to smoke failing outpatient oral antibiotic therapy 2patient is status post vascular surgical evaluation and surgical debridement and deep cultures which are currently pending, initial culture did grow e nterococcus and Enterobacter. 4patient continue with the daptomycin however will discontinue Rocephin and start the patient on cefepime 2 g every 12 hours Time with Patient: Less than 30
[2021-10-31 05:54] LABS: African American GFR (CKD) 35 (>60 ml/min/1.73 sqM); Anion Gap 5 mmol/L; Blood Urea Nitrogen 40 mg/dL (9-20); Calcium 8.4 mg/dL (8.4-10.2); Carbon Dioxide 24 mmol/L (22-30); Chloride 110 mmol/L (98-107); Glucose 108 mg/dL (74-99); Non-African American GFR(CKD) 30 (>60 ml/min/1.73 sqM); Potassium 4.4 mmol/L (3.5-5.1); Sodium 139 mmol/L (137-145)
[2021-10-31 06:53] LABS: Glucose,Whole Blood 123 mg/dL (70-110)
[2021-10-31] MEDS: INSULIN ASPART (NovoLOG) 100 UNIT/ML VIAL SQ SCH ×5 (07:23→21:18)
[2021-10-31] MEDS: APIXABAN 2.5 MG TABLET PO SCH (07:53)
[2021-10-31] MEDS: amLODIPine 10 MG TAB PO SCH (07:53)
[2021-10-31] MEDS: LOSARTAN 50 MG TAB PO SCH (07:54)
[2021-10-31] MEDS: LINAGLIPTIN 5 MG TABLET PO SCH (07:54)
[2021-10-31] MEDS: FUROSEMIDE 40 MG TAB PO SCH (07:54)
[2021-10-31] MEDS: CEFEPIME 2 GM in SODIUM CHLORIDE 0.9% 100 ML IVPB SCH ×2 (07:55→21:12)
[2021-10-31 09:30] LABS: Basophils # (A) 0.04 X 10*3/uL (0.00-0.10); Basophils % (A) 0.5 %; Eosinophils # (A) 0.27 X 10*3/uL (0.04-0.35); Eosinophils % (A) 3.5 %; HCT 31.2 % (39.6-50.0); HGB 9.5 g/dL (13.0-17.0); Immature Grans, Automated 0.3 %; Lymphocytes # (A) 0.88 X 10*3/uL (0.90-5.00); Lymphocytes % (A) 11.4 %; MCH 29.5 pg (27.0-32.0); MCHC 30.4 g/dL (32.0-37.0); MCV 96.9 fL (80.0-97.0); Mean Platelet Volume 11.3 fL (9.5-12.2); Monocytes # (A) 0.77 X 10*3/uL (0.20-1.00); NRBC Per 100 WBC 0 /100 WBCS (0.0-0.0); Neutrophils # (A) 5.73 X 10*3/uL (1.80-7.70); Neutrophils % (A) 74.3 %; Platelet Count 202 X 10*3/uL (140-440); RBC 3.22 X 10*6/uL (4.40-5.60); RDW 16.7 % (11.5-14.5); WBC 7.71 X 10*3/uL (4.50-10.00)
[2021-10-31 11:44] LABS: Glucose,Whole Blood 114 mg/dL (70-110)
[2021-10-31 16:25] LABS: Glucose,Whole Blood 118 mg/dL (70-110)
--- NOTE | 2021-10-31 17:10 | P.PN ---
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; status post debridement 86 year old male with a past medical history significant for type 2 diabetes mellitus hypertension atrial fibrillation chronic smoking and a current smoker presenting to the ER for evaluation of a nonhealing wound to the left foot that apparently has been going on for couple of months now patient has been treated with the multiple courses of antibiotics without any improvement, and the patient presented to the hospital, patient denies having any fever or any chills and no fever was noticed on presentation to the hospital patient compl aining of pain to the left foot more of a dull aching at times sharp 5-6 out of 10 and no radiation patient multiple small wounds and also respiratory the left foot and a necrotic area to the lateral aspect of his left foot, patient on presentation to hospital was afebrile did have a normal white count, patient did have a x-ray of the foot shows erosive changes distal phalanx second digit suggest Osteomyelitis, patient was started on vancomycin and Rocephin and admitted to the hospital infectious disease was consulted for further management of antibiotic therapy 10/30/2021 Patient is seen and evaluated sitting up in bed; reports some uncontrolled pain post debridement Vital signs are reviewed and remained stable; remains on IV antibiotics in form of Rocephin and daptomycin Laboratory review shows stable WBC of 7.17, hemoglobin 9.6, platelet count of 206, sodium 143, potassium 4.3, BUN/creatinine of 39/1.95 which is improved from 35.5/2.0 yesterday 10/31/2021 Patient is seen and evaluated resting in bed; denies any complaint of chest pain or shortness; complaints of pain to her left foot after debridement Patient is status post surgical debridement of chronic nonhealing left foot ulcer with secondary cellulitis Vital signs are stable with temperature of 98.1, pulse of 90, respiration 18 and blood pressure 127 or 63 with O2 saturation of 94% on room air Lab review shows WBC of 7.71, hemoglobin 9.5, he platelet count of 202, sodium 139, potassium 4.4 BUN/creatinine of 40/1.96 Patient is currently on IV cefepime 2 g every 12 hours and daptomycin; ID has discontinued Rocephin; deep tissue culture reveals enterococcus and Enterobacter Objective - Vital Signs Vital signs: Vital Signs Temp 98.1 F 10/31/21 14:00 Pulse 59 L 10/31/21 14:00 Resp 18 10/31/21 14:00 BP 127/63 10/31/21 14:00 Pulse Ox 94 L 10/31/21 14:00 FiO2 Intake & Output 10/30/21 10/31/21 10/31/21 18:59 06:59 18:59 Intake Total 540 Output Total 800 100 850 Balance -260 -100 -850 Intake: Oral 540 Output: Urine 800 100 850 - Exam - Constitutional General appearance: Present: average body habitus, cooperative, no acute distress - EENT Eyes: Present: anicteric sclerae, EOMI, PERRLA, normal appearance ENT: Present: hearing grossly normal, normal oropharynx Ears: bilateral: normal - Neck Neck: Present: normal ROM. Absent: lymphadenopathy, rigidity, thyromegaly Carotids: negative: bruit present Thyroid: bilateral: normal size, negative: enlarged, nodule - Respiratory Respiratory: bilateral: CTA, negative: rales, rhonchi, wheezing - Cardiovascular Rhythm: regular Heart sounds: normal: S1, S2 Abnormal Heart Sounds: Absent: systolic murmur, diastolic murmur - Gastrointestinal General gastrointestinal: Present: normal bowel sounds, soft. Absent: distended, organomegaly, tenderness - Genitourinary Genitourinary Comment(s): deferred - Integumentary Integumentary: Present: normal turgor. Absent: jaundiced, rash, ulcer - Neurologic Neurologic: Present: CNII-XII intact. Absent: focal deficits - Musculoskeletal Musculoskeletal: Present: gait normal, strength equal bilaterally - Psychiatric Psychiatric: Present: A&O x's 3, appropriate affect, intact judgment & insight - Labs CBC & Chem 7: 10/31/21 04:40 10/31/21 04:40 Labs: Abnormal Lab Results - Last 24 Hours (Table) 10/30/21 10/31/21 10/31/21 Range/Units 20:37 04:40 04:40 RBC 3.22 L (4.40-5.60) X 10*6/uL Hgb 9.5 L (13.0-17.0) g/dL Hct 31.2 L (39.6-50.0) % MCHC 30.4 L (32.0-37.0) g/dL RDW 16.7 H (11.5-14.5) % Lymphocytes # 0.88 L (0.90-5.00) X 10*3/uL Chloride 110 H (98-107) mmol/L BUN 40 H (9-20) mg/dL Creatinine 1.96 H (0.66-1.25) mg/dL Glucose 108 H (74-99) mg/dL POC Glucose (mg/dL) 163 H (70-110) mg/dL 10/31/21 10/31/21 10/31/21 Range/Units 06:51 11:43 16:19 RBC (4.40-5.60) X 10*6/uL Hgb (13.0-17.0) g/dL Hct (39.6-50.0) % MCHC (32.0-37.0) g/dL RDW (11.5-14.5) % Lymphocytes # (0.90-5.00) X 10*3/uL Chloride (98-107) mmol/L BUN (9-20) mg/dL Creatinine (0.66-1.25) mg/dL Glucose (74-99) mg/dL POC Glucose (mg/dL) 123 H 114 H 118 H (70-110) mg/dL Microbiology - Last 24 Hours (Table) 10/28/21 14:17 Blood Culture - Preliminary Blood No Growth after 72 hours 10/28/21 14:17 Blood Culture - Preliminary Blood No Growth after 72 hours 10/30/21 10:38 Gram Stain - Preliminary Foot - Left Wound Culture - Preliminary Gram Neg Bacilli 10/28/21 17:48 Gram Stain - Preliminary Foot - Left Wound Culture - Preliminary Enterobacter cloacae Group D Enterococcus 10/30/21 10:38 Anaerobic Culture - Preliminary Foot - Left Assessment and Plan Assessment: 1. Osteomyelitis left foot suspicious for underlying arterial insufficiency in this patient who do have a history of smoking and continued to smoke failing outpatient oral antibiotic therapy patient with renal insufficiency high risk of nephrotoxicity patient to continue with the Rocephin and daptomycin. patient will benefit from vascular surgical evaluation, per ID recommendations. local wound care with the [facility] follow moist dressing change daily 2. Diabetes mellitus type 2; we will monitor Accu-Cheks every before meals and at bedtime with insulin sliding scale; continue with home dose of Tradjenta 5 mg daily 3. Atrial fibrillation; currently not on any rate controlling medication; continue with anticoagulation with Ahlquist 2.5 mg daily 4. Hypertension; losartan 100 mg daily; Norvasc 10 mg daily 5. Chronic kidney disease; avoid nephrotoxins; monitor renal function and electrolytes
[2021-10-31 20:29] LABS: Glucose,Whole Blood 168 mg/dL (70-110)
[2021-10-31] MEDS: ATORVASTATIN 20 MG TAB PO SCH (21:12)
[2021-11-01] MEDS: HYDROcodone/APAP 7.5-325MG 1 EACH TAB PO PRN (03:27)
[2021-11-01 05:27] LABS: African American GFR (CKD) 36 (>60 ml/min/1.73 sqM); Anion Gap 7 mmol/L; Blood Urea Nitrogen 40 mg/dL (9-20); Calcium 8.3 mg/dL (8.4-10.2); Carbon Dioxide 25 mmol/L (22-30); Chloride 109 mmol/L (98-107); Glucose 108 mg/dL (74-99); Non-African American GFR(CKD) 31 (>60 ml/min/1.73 sqM); Potassium 4.5 mmol/L (3.5-5.1); Sodium 141 mmol/L (137-145)
[2021-11-01 06:48] LABS: Glucose,Whole Blood 109 mg/dL (70-110)
[2021-11-01] MEDS: INSULIN ASPART (NovoLOG) 100 UNIT/ML VIAL SQ SCH ×4 (06:58→20:19)
[2021-11-01] MEDS: amLODIPine 10 MG TAB PO SCH (08:05)
[2021-11-01] MEDS: APIXABAN 2.5 MG TABLET PO SCH (08:05)
[2021-11-01] MEDS: LOSARTAN 50 MG TAB PO SCH (08:05)
[2021-11-01] MEDS: FUROSEMIDE 40 MG TAB PO SCH (08:05)
[2021-11-01] MEDS: LINAGLIPTIN 5 MG TABLET PO SCH (08:05)
[2021-11-01 09:10] LABS: Basophils # (A) 0.03 X 10*3/uL (0.00-0.10); Basophils % (A) 0.4 %; Eosinophils # (A) 0.34 X 10*3/uL (0.04-0.35); Eosinophils % (A) 4.6 %; HCT 31.7 % (39.6-50.0); HGB 9.6 g/dL (13.0-17.0); Immature Grans, Automated 0.3 %; Lymphocytes # (A) 0.84 X 10*3/uL (0.90-5.00); Lymphocytes % (A) 11.3 %; MCH 29.4 pg (27.0-32.0); MCHC 30.3 g/dL (32.0-37.0); MCV 97.2 fL (80.0-97.0); Mean Platelet Volume 11.3 fL (9.5-12.2); Monocytes # (A) 0.74 X 10*3/uL (0.20-1.00); Monocytes % (A) 9.9 %; NRBC Per 100 WBC 0 /100 WBCS (0.0-0.0); Neutrophils # (A) 5.48 X 10*3/uL (1.80-7.70); Neutrophils % (A) 73.5 %; Platelet Count 196 X 10*3/uL (140-440); RBC 3.26 X 10*6/uL (4.40-5.60); RDW 16.6 % (11.5-14.5); WBC 7.45 X 10*3/uL (4.50-10.00)
[2021-11-01] MEDS: CEFEPIME 2 GM in SODIUM CHLORIDE 0.9% 100 ML IVPB SCH ×2 (09:51→20:29)
[2021-11-01 11:18] LABS: Glucose,Whole Blood 166 mg/dL (70-110)
--- NOTE | 2021-11-01 12:21 | P.PN ---
Subjective Progress Note Date: 11/01/21 HISTORY OF PRESENT ILLNESS 86 year old male with a past medical history significant for type 2 d iabetes mellitus hypertension atrial fibrillation chronic smoking and a current smoker presenting to the ER for evaluation of a nonhealing wound to the left foot that apparently has been going on for couple of months now patient has been treated with the multiple courses of antibiotics without any improvement, and the patient presented to the hospital, patient denies having any fever or any chills and no fever was noticed on presentation to the hospital patient complaining of pain to the left foot more of a dull aching at times sharp 5-6 out of 10 and no radiation patient multiple small wounds and also respiratory the left foot and a necrotic area to the lateral aspect of his left foot, nicolas ent on presentation to hospital was afebrile did have a normal white count, patient did have a x-ray of the foot shows erosive changes distal phalanx second digit suggest Osteomyelitis, patient was started on vancomycin and Rocephin and admitted to the hospital infectious disease was consulted for further management of antibiotic therapy 10/30/2021 Patient is seen and evaluated sitting up in bed; reports some uncontrolled pain post debridement Vital signs are reviewed and remained stable; remains on IV antibiotics in form of Rocephin and daptomycin Laboratory review shows stable WBC of 7.17, hemoglobin 9.6, platelet count of 206, sodium 143, potassium 4.3, BUN/creatinine of 39/1.95 which is improved from 35.5/2.0 yesterday 10/31/2021 Patient is seen and evaluated resting in bed; denies any complaint of chest pain or shortness; complaints of pain to her left foot after debridement Patient is status post surgical debridement of chronic nonhealing left foot ulcer with secondary cellulitis Vital signs are stable with temperature of 98.1, pulse of 90, respiration 18 and blood pressure 127 or 63 with O2 saturation of 94% on room air Lab review shows WBC of 7.71, hemoglobin 9.5, he platelet count of 202, sodium 139, potassium 4.4 BUN/creatinine of 40/1.96 Patient is currently on IV cefepime 2 g every 12 hours and daptomycin; ID has discontinued Rocephin; deep tissue culture reveals enterococcus and Enterobacter 11/01: Patient is status post debridement done by Dr. Felix. He is currently on IV cefepime and daptomycin per Dr. Phillips. Discharge plan is currently to return home with IV antibiotics. Patient may benefit from subacute rehab. All patient's toenails are long and a consult placed with Dr. Escobar. Blood sugars are running between 109 168. Patient has been refusing insulin. Hemoglobin is 9.6. REVIEW OF SYSTEMS Constitutional: No fever, no chills, no night sweats. No weight change. No weakness, fatigue or lethargy. No daytime sleepiness. EENT: No headache. No blurred vision or double vision, no loss of vision. No loss of Hearing, no ringing in the ears, no dizziness. No nasal drainage or congestion. No epistaxis. No sore throat. Lungs: No shortness of breath, cough, no sputum production. No wheezing. Cardiovascular: No chest pain, no lower extremity edema. No palpitations. No paroxysmal nocturnal dyspnea. No orthopnea. No lightheadedness or dizziness. No syncopal episodes. Abdominal: No abdominal pain. No nausea, vomiting. No diarrhea. No constipation. No bloody or tarry stools. No loss of appetite. Genitourinary: No dysuria, increased frequency, urgency. No urinary retention. Musculoskeletal: No myalgias. No muscle weakness, no gait dysfunction, no frequent falls. No back pain. No neck pain. Integumentary: Noted wounds, no lesions. No rash or pruritus. No unusual bruising. No change in hair or nails. Neurologic: No aphasia. No facial droop. No change in mentation. No head injury. No headache. No paralysis. No paresthesia. Psychiatric: No depression. No anxiety. No mood swings. Endocrine: Mildly abnormal blood sugars. No weight change. PHYSICAL EXAMINATION Gen: This is an 86-year-old male. He is sitting in recliner with his legs in an elevated position. HEENT: Head is atraumatic, normocephalic. Pupils equal, round. Sclerae is anicteric. NECK: Supple. No JVD. No lymphadenopathy. No thyromegaly. LUNGS: Clear to auscultation. No wheezes or rhonchi. No intercostal retractions. HEART: Regular rate and rhythm. No murmur. ABDOMEN: Soft. Bowel sounds are present. No masses. No tenderness. EXTREMITIES: No pedal edema. No calf tenderness. Multiple ulcers to the dorsal left foot with serous drainage NEUROLOGICAL: Patient is awake, alert and oriented x3. Cranial nerves 2 through 12 are grossly intact. ASSESSMENT AND PLAN 1. 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 Patient is currently on daptomycin and cefepime per ID recommendations. Continue local wound care. Anticipate need for IV antibiotics at discharge. Continue Lasix 40 mg daily. 2. Diabetes mellitus type 2. Continue Tradjenta 5 mg daily and NovoLog scale before meals and at bedtime. 3. Atrial fibrillation. Continue eliquis 4. Hypertension. Continue Lasix 40 mg daily, amlodipine 10 mg daily, losartan 100 mg daily. 5. Chronic kidney disease stage IIIB. Monitor renal function, avoid nephrotoxic agents 6. Hyperlipidemia. Continue Lipitor 20 mg daily. 7. GI prophylaxis. Protonix. 8. DVT prophylaxis. Eliquis. DISCHARGE PLAN To be determined. Most likely return home with IV antibiotics. Consult with PT and OT added. Impression and plan of care have been directed as dictated by the signing physician. Quyen Portillo nurse practitioner acting as scribe for signing physician. Objective - Vital Signs Vital signs: Vital Signs Temp 97.9 F 11/01/21 08:00 Pulse 65 11/01/21 08:00 Resp 17 11/01/21 08:00 BP 126/73 11/01/21 08:00 Pulse Ox 94 L 11/01/21 08:00 FiO2 Intake & Output 10/31/21 11/01/21 11/01/21 18:59 06:59 18:59 Intake Total 300 Output Total 850 300 Balance -850 0 Intake: Intake, IV Titration 100 Amount Cefepime 2 gm In Sodium 100 Chloride 0.9% 100 ml @ 25 mls/hr IVPB Q12HR [facility] Rx #:[id number] Oral 200 Output: Urine 850 300 Other: # Voids 3 # Bowel Movements 0 - Labs CBC & Chem 7: 11/01/21 04:17 11/01/21 04:17 Labs: Abnormal Lab Results - Last 24 Hours (Table) 10/31/21 10/31/21 10/31/21 Range/Units 04:40 11:43 16:19 RBC 3.22 L (4.40-5.60) X 10*6/uL Hgb 9.5 L (13.0-17.0) g/dL Hct 31.2 L (39.6-50.0) % MCHC 30.4 L (32.0-37.0) g/dL RDW 16.7 H (11.5-14.5) % Lymphocytes # 0.88 L (0.90-5.00) X 10*3/uL Chloride (98-107) mmol/L BUN (9-20) mg/dL Creatinine (0.66-1.25) mg/dL Glucose (74-99) mg/dL POC Glucose (mg/dL) 114 H 118 H (70-110) mg/dL Calcium (8.4-10.2) mg/dL 10/31/21 11/01/21 Range/Units 20:28 04:17 RBC (4.40-5.60) X 10*6/uL Hgb (13.0-17.0) g/dL Hct (39.6-50.0) % MCHC (32.0-37.0) g/dL RDW (11.5-14.5) % Lymphocytes # (0.90-5.00) X 10*3/uL Chloride 109 H (98-107) mmol/L BUN 40 H (9-20) mg/dL Creatinine 1.90 H (0.66-1.25) mg/dL Glucose 108 H (74-99) mg/dL POC Glucose (mg/dL) 168 H (70-110) mg/dL Calcium 8.3 L (8.4-10.2) mg/dL Microbiology - Last 24 Hours (Table) 10/28/21 17:48 Gram Stain - Final Foot - Left Wound Culture - Final Enterobacter cloacae Enterococcus faecalis 10/28/21 14:17 Blood Culture - Preliminary Blood No Growth after 72 hours 10/28/21 14:17 Blood Culture - Preliminary Blood No Growth after 72 hours 10/30/21 10:38 Gram Stain - Preliminary Foot - Left Wound Culture - Preliminary Gram Neg Bacilli
--- NOTE | 2021-11-01 12:28 | P.PN ---
Progress Note - Text Patient has a chronic wound left foot we did the debridement culture came back and patient is under care of infectious disease IV antibiotic patient had his dressing change today base of the wound is granulating week continue with medihoney gel
[2021-11-01 16:39] LABS: Glucose,Whole Blood 131 mg/dL (70-110)
[2021-11-01 20:09] LABS: Glucose,Whole Blood 203 mg/dL (70-110)
[2021-11-01] MEDS: ATORVASTATIN 20 MG TAB PO SCH (20:29)
[2021-11-02 06:41] LABS: Glucose,Whole Blood 115 mg/dL (70-110)
[2021-11-02] MEDS: INSULIN ASPART (NovoLOG) 100 UNIT/ML VIAL SQ SCH ×4 (06:50→20:49)
--- NOTE | 2021-11-02 06:52 | P.PN ---
Subjective Progress Note Date: 10/31/21 Principal diagnosis: Left diabetic foot infection Patient is 86-year-old male with a past medical history significant for diabetes mellitus history of smoking and continued to smoke did have a chronic nonhealing wound to the left foot with secondary cellulitis. Patient is status post surgical debridement and deep culture by vascular surgery on 10/30/2021 On today's evaluation that is 10/31/2021, patient continues to be afebrile, the patient pain to the left foot has decreased intensity, the patient denies any chest pain or shortness of breath or cough no abdominal pain no diarrhea Objective - Vital Signs Vital signs: Vital Signs Temp 98.1 F 10/31/21 14:00 Pulse 59 L 10/31/21 14:00 Resp 18 10/31/21 14:00 BP 127/63 10/31/21 14:00 Pulse Ox 94 L 10/31/21 14:00 FiO2 Intake & Output 10/30/21 10/31/21 10/31/21 18:59 06:59 18:59 Intake Total 540 Output Total 800 100 850 Balance -260 -100 -850 Intake: Oral 540 Output: Urine 800 100 850 - Exam GENERAL DESCRIPTION: An elderly male lying in bed in no distress RESPIRATORY SYSTEM: Unlabored breathing , decreased breath sounds at bases HEART: S1 S2 regular rate and rhythm , ABDOMEN: Soft , no tenderness EXTREMITIES: Left foot is currently dressed no drainage on the dressing - Labs CBC & Chem 7: 11/01/21 04:17 11/01/21 04:17 Labs: Abnormal Lab Results - Last 24 Hours (Table) 10/30/21 10/31/21 10/31/21 Range/Units 20:37 04:40 04:40 RBC 3.22 L (4.40-5.60) X 10*6/uL Hgb 9.5 L (13.0-17.0) g/dL Hct 31.2 L (39.6-50.0) % MCHC 30.4 L (32.0-37.0) g/dL RDW 16.7 H (11.5-14.5) % Lymphocytes # 0.88 L (0.90-5.00) X 10*3/uL Chloride 110 H (98-107) mmol/L BUN 40 H (9-20) mg/dL Creatinine 1.96 H (0.66-1.25) mg/dL Glucose 108 H (74-99) mg/dL POC Glucose (mg/dL) 163 H (70-110) mg/dL 10/31/21 10/31/21 10/31/21 Range/Units 06:51 11:43 16:19 RBC (4.40-5.60) X 10*6/uL Hgb (13.0-17.0) g/dL Hct (39.6-50.0) % MCHC (32.0-37.0) g/dL RDW (11.5-14.5) % Lymphocytes # (0.90-5.00) X 10*3/uL Chloride (98-107) mmol/L BUN (9-20) mg/dL Creatinine (0.66-1.25) mg/dL Glucose (74-99) mg/dL POC Glucose (mg/dL) 123 H 114 H 118 H (70-110) mg/dL Microbiology - Last 24 Hours (Table) 10/28/21 14:17 Blood Culture - Preliminary Blood No Growth after 72 hours 10/28/21 14:17 Blood Culture - Preliminary Blood No Growth after 72 hours 10/30/21 10:38 Gram Stain - Preliminary Foot - Left Wound Culture - Preliminary Gram Neg Bacilli 10/28/21 17:48 Gram Stain - Preliminary Foot - Left Wound Culture - Preliminary Enterobacter cloacae Group D Enterococcus 10/30/21 10:38 Anaerobic Culture - Preliminary Foot - Left Assessment and Plan (1) Osteomyelitis of toe of left foot Current Visit: Yes Status: Acute Code(s): M86.9 - OSTEOMYELITIS, UNSPECIFIED SNOMED Code(s): 930382946 Plan: 1patient is in the hospital with a nonhealing wounds to his left foot in this patient did have multiple superficial ulceration on the dorsum aspect of the left foot with some secondary selected and accordingly to the left foot lateral border high clinical suspicious for underlying arterial insufficiency in this patient who do have a history of smoking and continued to smoke failing outpatient oral antibiotic therapy 2patient is status post vascular surgical evaluation and surgical debridement and deep cultures which are currently pending, initial culture did grow enterococcus and Enterobacter. 4patient continue with the daptomycin cefepime 2 g every 12 hours and local wound care to continue with the medihoney Time with Patient: Less than 30
--- NOTE | 2021-11-02 06:54 | P.PN ---
Subjective Progress Note Date: 11/01/21 Principal diagnosis: Left diabetic foot infection Patient is 86-year-old male with a past medical history significant for diabetes mellitus history of smoking and continued to smoke did have a chronic nonhealing wound to the left foot with secondary cellulitis. Patient is status post surgical debridement and deep culture by vascular surgery on 10/30/2021 On today's evaluation that is 11/01/2021, patient denies any fever or chills, the patient denies any worsening pain to the left foot, the patient denies any chest pain or shortness of breath or cough no abdominal pain no diarrhea Objective - Vital Signs Vital signs: Vital Signs Temp 98.1 F 11/01/21 14:00 Pulse 59 L 11/01/21 14:00 Resp 18 11/01/21 14:00 BP 117/59 11/01/21 14:00 Pulse Ox 97 11/01/21 14:00 FiO2 Intake & Output 10/31/21 11/01/21 11/01/21 18:59 06:59 18:59 Intake Total 300 150 Output Total 850 300 200 Balance -850 0 -50 Intake: Intake, IV Titration 100 150 Amount Cefepime 2 gm In Sodium 100 100 Chloride 0.9% 100 ml @ 25 mls/hr IVPB Q12HR [facility] Rx #:[id number] DAPTOmycin 600 mg In 50 Sodium Chloride 0.9% 50 ml @ 100 mls/hr IVPB Q24HR [facility] Rx#:[id number] Oral 200 Output: Urine 850 300 200 Other: # Voids 3 # Bowel Movements 0 - Exam GENERAL DESCRIPTION: An elderly male lying in bed in no distress RESPIRATORY SYSTEM: Unlabored breathing , decreased breath sounds at bases HEART: S1 S2 regular rate and rhythm , ABDOMEN: Soft , no tenderness EXTREMITIES: Left foot dressing was just changed by surgeon, hence wound could not be examined - Labs CBC & Chem 7: 11/01/21 04:17 11/01/21 04:17 Labs: Abnormal Lab Results - Last 24 Hours (Table) 10/31/21 11/01/21 11/01/21 Range/Units 20:28 04:17 04:17 RBC 3.26 L (4.40-5.60) X 10*6/uL Hgb 9.6 L (13.0-17.0) g/dL Hct 31.7 L (39.6-50.0) % MCV 97.2 H (80.0-97.0) fL MCHC 30.3 L (32.0-37.0) g/dL RDW 16.6 H (11.5-14.5) % Lymphocytes # 0.84 L (0.90-5.00) X 10*3/uL Chloride 109 H (98-107) mmol/L BUN 40 H (9-20) mg/dL Creatinine 1.90 H (0.66-1.25) mg/dL Glucose 108 H (74-99) mg/dL POC Glucose (mg/dL) 168 H (70-110) mg/dL Calcium 8.3 L (8.4-10.2) mg/dL 11/01/21 Range/Units 11:16 RBC (4.40-5.60) X 10*6/uL Hgb (13.0-17.0) g/dL Hct (39.6-50.0) % MCV (80.0-97.0) fL MCHC (32.0-37.0) g/dL RDW (11.5-14.5) % Lymphocytes # (0.90-5.00) X 10*3/uL Chloride (98-107) mmol/L BUN (9-20) mg/dL Creatinine (0.66-1.25) mg/dL Glucose (74-99) mg/dL POC Glucose (mg/dL) 166 H (70-110) mg/dL Calcium (8.4-10.2) mg/dL Microbiology - Last 24 Hours (Table) 10/30/21 10:38 Anaerobic Culture - Preliminary Foot - Left 10/30/21 10:38 Gram Stain - Final Foot - Left Wound Culture - Final Enterobacter cloacae 10/28/21 17:48 Gram Stain - Final Foot - Left Wound Culture - Final Enterobacter cloacae Enterococcus faecalis 10/28/21 14:17 Blood Culture - Preliminary Blood No Growth after 72 hours 10/28/21 14:17 Blood Culture - Preliminary Blood No Growth after 72 hours Assessment and Plan (1) Osteomyelitis of toe of left foot Current Visit: Yes Status: Acute Code(s): M86.9 - OSTEOMYELITIS, UNSPECIFIED SNOMED Code(s): 404600605 Plan: 1patient is in the hospital with a nonhealing wounds to his left foot in this patient did have multiple superficial ulceration on the dorsum aspect of the left foot with some secondary selected and accordingly to the left foot lateral border high clinical suspicious for underlying arterial insufficiency in this patient who do have a history of smoking and continued to smoke failing outpatient oral antibiotic therapy 2patient is status post vascular surgical evaluation and surgical debridement and deep cultures which are currently pending, initial culture did grow enterococcus and Enterobacter. 4patient antibiotics will be switched over to Zosyn to cover for for both pathogens, and reevaluate the wound tomorrow to determine his discharge antibiotics Time with Patient: Less than 30
[2021-11-02] MEDS: PIPERACILLIN-TAZOBACTAM 3.375 GM in SODIUM CHLORIDE 0.9% 100 ML IVPB SCH ×3 (09:18→23:20)
[2021-11-02] MEDS: APIXABAN 2.5 MG TABLET PO SCH ×2 (09:19→11:12)
[2021-11-02] MEDS: LOSARTAN 50 MG TAB PO SCH (09:19)
[2021-11-02] MEDS: FUROSEMIDE 40 MG TAB PO SCH (09:19)
[2021-11-02] MEDS: amLODIPine 10 MG TAB PO SCH (09:19)
[2021-11-02] MEDS: LINAGLIPTIN 5 MG TABLET PO SCH (09:19)
[2021-11-02 11:01] LABS: INR 1.1 (<1.2); Prothrombin Time 11.3 sec (9.0-12.0)
--- NOTE | 2021-11-02 11:06 | P.PN ---
Subjective Progress Note Date: 11/02/21 HISTORY OF PRESENT ILLNESS 86 year old male with a past medical history significant for type 2 d iabetes mellitus hypertension atrial fibrillation chronic smoking and a current smoker presenting to the ER for evaluation of a nonhealing wound to the left foot that apparently has been going on for couple of months now patient has been treated with the multiple courses of antibiotics without any improvement, and the patient presented to the hospital, patient denies having any fever or any chills and no fever was noticed on presentation to the hospital patient complaining of pain to the left foot more of a dull aching at times sharp 5-6 out of 10 and no radiation patient multiple small wounds and also respiratory the left foot and a necrotic area to the lateral aspect of his left foot, nicolas ent on presentation to hospital was afebrile did have a normal white count, patient did have a x-ray of the foot shows erosive changes distal phalanx second digit suggest Osteomyelitis, patient was started on vancomycin and Rocephin and admitted to the hospital infectious disease was consulted for further management of antibiotic therapy 10/30/2021 Patient is seen and evaluated sitting up in bed; reports some uncontrolled pain post debridement Vital signs are reviewed and remained stable; remains on IV antibiotics in form of Rocephin and daptomycin Laboratory review shows stable WBC of 7.17, hemoglobin 9.6, platelet count of 206, sodium 143, potassium 4.3, BUN/creatinine of 39/1.95 which is improved from 35.5/2.0 yesterday 10/31/2021 Patient is seen and evaluated resting in bed; denies any complaint of chest pain or shortness; complaints of pain to her left foot after debridement Patient is status post surgical debridement of chronic nonhealing left foot ulcer with secondary cellulitis Vital signs are stable with temperature of 98.1, pulse of 90, respiration 18 and blood pressure 127 or 63 with O2 saturation of 94% on room air Lab review shows WBC of 7.71, hemoglobin 9.5, he platelet count of 202, sodium 139, potassium 4.4 BUN/creatinine of 40/1.96 Patient is currently on IV cefepime 2 g every 12 hours and daptomycin; ID has discontinued Rocephin; deep tissue culture reveals enterococcus and Enterobacter 11/01: Patient is status post debridement done by Dr. Felix. He is currently on IV cefepime and daptomycin per Dr. Phillips. Discharge plan is currently to return home with IV antibiotics. Patient may benefit from subacute rehab. All patient's toenails are long and a consult placed with Dr. Escobar. Blood sugars are running between 109 168. Patient has been refusing insulin. Hemoglobin is 9.6. 11/02: Dr. Escobar is in the room today to trim patient's toenails. We will order a PICC line as advised by Dr. Phillips. Antibiotics have now been switched to Zosyn and Dr. Farley will evaluate for discharge antibiotics. Patient is currently on eliquis and last creatinine was 1.9, consult added for nephrology prior to PICC line placement. Anticipate this may take until tomorrow to complete. REVIEW OF SYSTEMS Constitutional: No fever, no chills, no night sweats. No weight change. No weakness, fatigue or lethargy. No daytime sleepiness. EENT: No headache. No blurred vision or double vision, no loss of vision. No loss of Hearing, no ringing in the ears, no dizziness. No nasal drainage or congestion. No epistaxis. No sore throat. Lungs: No shortness of breath, cough, no sputum production. No wheezing. Cardiovascular: No chest pain, no lower extremity edema. No palpitations. No paroxysmal nocturnal dyspnea. No orthopnea. No lightheadedness or dizziness. No syncopal episodes. Abdominal: No abdominal pain. No nausea, vomiting. No diarrhea. No constipation. No bloody or tarry stools. No loss of appetite. Genitourinary: No dysuria, increased frequency, urgency. No urinary retention. Musculoskeletal: No myalgias. No muscle weakness, no gait dysfunction, no frequent falls. No back pain. No neck pain. Integumentary: Noted wounds left foot, no lesions. No rash or pruritus. No unusual bruising. No change in hair or nails. Neurologic: No aphasia. No facial droop. No change in mentation. No head injury. No headache. No paralysis. No paresthesia. Psychiatric: No depression. No anxiety. No mood swings. Endocrine: Mildly abnormal blood sugars. No weight change. PHYSICAL EXAMINATION Gen: This is an 86-year-old male. He is sitting in recliner with his legs in an elevated position. HEENT: Head is atraumatic, normocephalic. Pupils equal, round. Sclerae is anict deon. NECK: Supple. No JVD. No lymphadenopathy. No thyromegaly. LUNGS: Clear to auscultation. No wheezes or rhonchi. No intercostal retractions. HEART: Regular rate and rhythm. No murmur. ABDOMEN: Soft. Bowel sounds are present. No masses. No tenderness. EXTREMITIES: No pedal edema. No calf tenderness. Multiple ulcers to the dorsal left foot. NEUROLOGICAL: Patient is awake, alert and oriented x3. Cranial nerves 2 through 12 are grossly intact. ASSESSMENT AND PLAN 1. 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 IV antibiotics changed to Zosyn per ID recommendations. Continue local wound care. Anticipate need for IV antibiotics at discharge. Continue Lasix 40 mg daily. 2. Diabetes mellitus type 2. Continue Tradjenta 5 mg daily and NovoLog scale before meals and at bedtime. 3. Atrial fibrillation. Continue eliquis 4. Hypertension. Continue Lasix 40 mg daily, amlodipine 10 mg daily, losartan 100 mg daily. 5. Chronic kidney disease stage IIIB. Monitor renal function, avoid nephrotoxic agents 6. Hyperlipidemia. Continue Lipitor 20 mg daily. 7. GI prophylaxis. Protonix. 8. DVT prophylaxis. Eliquis. DISCHARGE PLAN Home once PICC line and IV antibiotics are arranged. Impression and plan of care have been directed as dictated by the signing physician. Quyen Portillo nurse practitioner acting as scribe for signing physician. Objective - Vital Signs Vital signs: Vital Signs Temp 97.9 F 11/02/21 07:53 Pulse 65 11/02/21 07:53 Resp 18 11/02/21 07:53 BP 131/79 11/02/21 07:53 Pulse Ox 93 L 11/02/21 07:53 FiO2 Intake & Output 11/01/21 11/02/21 11/02/21 18:59 06:59 18:59 Intake Total 150 400 100 Output Total 400 300 210 Balance -250 100 -110 Intake: Intake, IV Titration 150 100 100 Amount Cefepime 2 gm In Sodium 100 100 Chloride 0.9% 100 ml @ 25 mls/hr IVPB Q12HR [facility] Rx #:[id number] DAPTOmycin 600 mg In 50 Sodium Chloride 0.9% 50 ml @ 100 mls/hr IVPB Q24HR [facility] Rx#:[id number] Piperacillin-Tazobactam 3 100 .375 gm In Sodium Chloride 0.9% 100 ml @ 25 mls/hr IVPB Q8HR [facility] Rx# :[id number] Oral 300 Output: Urine 400 300 210 Other: Voiding Method Toilet Urinal # Voids 2 # Bowel Movements 0 - Labs CBC & Chem 7: 11/01/21 04:17 11/01/21 04:17 Labs: Abnormal Lab Results - Last 24 Hours (Table) 11/01/21 11/01/21 11/01/21 Range/Units 11:16 16:37 20:08 POC Glucose (mg/dL) 166 H 131 H 203 H (70-110) mg/dL 11/02/21 Range/Units 06:40 POC Glucose (mg/dL) 115 H (70-110) mg/dL Microbiology - Last 24 Hours (Table) 10/28/21 14:17 Blood Culture - Preliminary Blood No Growth after 96 hours 10/28/21 14:17 Blood Culture - Preliminary Blood No Growth after 96 hours 10/30/21 10:38 Anaerobic Culture - Preliminary Foot - Left 10/30/21 10:38 Gram Stain - Final Foot - Left Wound Culture - Final Enterobacter cloacae
--- NOTE | 2021-11-02 11:41 | P.NPCON ---
History of Present Illness - Reason for Consult acute renal failure - History of Present Illness Patient is an 86-year-old male with history of type 2 diabetes, hypertension, chronic A. fib. Patient also has a chronic left foot ulcer. He had been attending the wound clinic and this was noticed to be worsening with increased drainage and pain and therefore patient was admitted to the ER. He denies any history of fevers or chills. No history of nausea vomiting diarrhea or abdominal pain. Oral intake has been poor No history of use of NSAIDs Patient has been voiding He has significant swelling of his lower extremities. Blood pressure has not been significantly low Review of Systems As per HPI, other systems negative Past Medical History Past Medical History: Atrial Fibrillation, Diabetes Mellitus, Hypertension Additional Past Medical History / Comment(s): AAA History of Any Multi-Drug Resistant Organisms: None Reported Past Surgical History: Appendectomy, Orthopedic Surgery Additional Past Surgical History / Comment(s): abdominal stents from AAA Past Psychological History: No Psychological Hx Reported Smoking Status: Current every day smoker Past Alcohol Use History: None Reported Past Drug Use History: None Reported Medications and Allergies Home Medications Medication Instructions Recorded Confirmed Type Apixaban [Eliquis] 2.5 mg PO DAILY 10/28/21 10/28/21 History Furosemide [Lasix] 40 mg PO DAILY 10/28/21 10/28/21 History HYDROcodone/APAP 7.5-325MG [[place] 1 tab PO Q12H PRN 10/28/21 10/28/21 History 7.5-325] Losartan Potassium 100 mg PO DAILY 10/28/21 10/28/21 History Rosuvastatin [Crestor] 10 mg PO HS 10/28/21 10/28/21 History amLODIPine [Norvasc] 10 mg PO DAILY 10/28/21 10/28/21 History sitaGLIPtin [Januvia] 100 mg PO DAILY 10/28/21 10/28/21 History Allergies Allergy/AdvReac Type Severity Reaction Status Date / Time nickel Allergy Unknown Verified 10/28/21 14:10 Sulfa (Sulfonamide Allergy Unknown Verified 10/28/21 14:10 Antibiotics) Physical Exam Vitals: Vital Signs Temp Pulse Resp BP Pulse Ox 11/02/21 07:53 97.9 F 65 18 131/79 93 L 11/02/21 02:00 98 F 81 16 168/71 95 06/27/22 20:28 97.7 F 61 15 132/64 96 11/01/21 14:00 98.1 F 59 L 18 117/59 97 Intake and Output 11/01/21 11/02/21 11/02/21 22:59 06:59 14:59 Intake Total 400 100 Output Total 500 210 Balance -500 400 -110 Intake: Intake, IV Titration 100 100 Amount Cefepime 2 gm In Sodium 100 Chloride 0.9% 100 ml @ 25 mls/hr IVPB Q12HR [facility] Rx #:[id number] Piperacillin-Tazobactam 3 100 .375 gm In Sodium Chloride 0.9% 100 ml @ 25 mls/hr IVPB Q8HR [facility] Rx# :[id number] Oral 300 Output: Urine 500 210 Other: Voiding Method Toilet Urinal # Voids 2 2 # Bowel Movements 0 Awake, comfortable, not in any acute distress Examination of the heart S1 and S2 Examination of the lungs bilateral breath sounds are heard Abdomen is soft nontender obese Examination of lower extremity shows bilateral edema 3+ with chronic changes and left leg. Wound noted on the left foot on the dorsum and the lateral aspect with drainage. [employer] exam grossly intact Results - Lab Results Most recent lab results Calcium 8.3 mg/dL (8.4-10.2) L 11/01/21 04:17 11/01/21 04:17 11/01/21 04:17 Assessment and Plan Assessment: 1. Acute kidney injury, nonoliguric, mostly ATN. Rule out urine retention. Check UA 2. Chronic kidney disease with previous creatinine 1.4 in 2019, NKF stage IIIa to IIIB. Etiology likely nephrosclerosis. UA is pending. Ultrasound has been ordered 3. Left foot ulcer being followed by infectious disease with concern for osteomyelitis 4. Volume overload 5. Type 2 diabetes Plan: Okay to proceed with PICC line for antibiotics Check UA Check bladder scan rule out urine retention Continue to diurese patient Decrease dose of losartan Repeat labs in a.m. Check ultrasound of the kidneys Thank you for the consultation. We'll continue to follow the patient with you during his hospitalization
[2021-11-02 11:54] LABS: Glucose,Whole Blood 118 mg/dL (70-110)
--- NOTE | 2021-11-02 12:24 | US ---
EXAMINATION TYPE: US kidneys/renal and bladder DATE OF EXAM: 11/02/2021 COMPARISON: CT CLINICAL HISTORY: ricky. RICKY EXAM MEASUREMENTS: Right Kidney: 10.6 x 6.3 x 5.9 cm Left Kidney: 11.2 x 4.7 x 5.9 cm Post Void Residual Volume: 265.04 mL Right Kidney: Anechoic area seen laterally: 1.2 x 1.4 x 1.2 cm. Cortex appears thin. Left Kidney: Cortex appears thin. Anechoic area seen upper pole: 2.6 x 1.7 x 1.3 cm. Hypoechoic area seen lower pole versus possible minimally dilated collecting system: 2.5 x 2.6 x 1.1 cm. Bladder: Bilateral Jets seen: Right jet seen, left jet not seen during exam. Distended bladder measures 10.7 x 8.6 x 8.8 cm suggestive of a 420.1 mL bladder volume. Normal Post Void Residual: Yes IMPRESSION: Bilateral renal cysts. Cortex appears thin correlate for chronic medical renal disease.
[2021-11-02 16:45] LABS: Glucose,Whole Blood 144 mg/dL (70-110)
[2021-11-02 16:58] LABS: Appearance,Urine Clear (Clear); Bilirubin,Urine Negative (Negative); Blood,Urine Negative (Negative); Color,Urine Light Yellow; Glucose,Urine (UA) Negative (Negative); Hyaline Casts,Urine 1 /lpf (0-2); Ketones,Urine Negative (Negative); Leukocyte Esterase,Urine Negative (Negative); Mucus,Urine Rare /hpf; Nitrite,Urine Negative (Negative); Protein,Urine 1+ (Negative); RBC,Urine 1 /hpf (0-5); Specific Gravity,Urine 1.011 (1.001-1.035); Squamous Epithelial Cell,Urine <1 /hpf (0-4); Urobilinogen,Urine <2.0 mg/dL (<2.0); WBC,Urine 1 /hpf (0-5)
--- NOTE | 2021-11-02 17:27 | P.GSHP ---
History of Present Illness H&P Date: 11/02/21 Chief Complaint: onychomycosis with diabetes 6-year-old maleadmitted 10/28/21 for management of a infected ulcer with osteomyelitis left patient is diabetic with several systemic conditions patient is being seen for debridement and management ofpainful dystrophic mycotic nail sbilateral. Past Medical History Past Medical History: Atrial Fibrillation, Diabetes Mellitus, Hypertension Additional Past Medical History / Comment(s): AAA History of Any Multi-Drug Resistant Organisms: None Reported Past Surgical History: Appendectomy, Orthopedic Surgery Additional Past Surgical History / Comment(s): abdominal stents from AAA Past Psychological History: No Psychological Hx Reported Smoking Status: Current every day smoker Past Alcohol Use History: None Reported Past Drug Use History: None Reported Medications and Allergies Home Medications Medication Instructions Recorded Confirmed Type Apixaban [Eliquis] 2.5 mg PO DAILY 10/28/21 10/28/21 History Furosemide [Lasix] 40 mg PO DAILY 10/28/21 10/28/21 History HYDROcodone/APAP 7.5-325MG [[place] 1 tab PO Q12H PRN 10/28/21 10/28/21 History 7.5-325] Losartan Potassium 100 mg PO DAILY 10/28/21 10/28/21 History Rosuvastatin [Crestor] 10 mg PO HS 10/28/21 10/28/21 History amLODIPine [Norvasc] 10 mg PO DAILY 10/28/21 10/28/21 History sitaGLIPtin [Januvia] 100 mg PO DAILY 10/28/21 10/28/21 History Allergies Allergy/AdvReac Type Severity Reaction Status Date / Time nickel Allergy Unknown Verified 10/28/21 14:10 Sulfa (Sulfonamide Allergy Unknown Verified 10/28/21 14:10 Antibiotics) Surgical - Exam Vital Signs Temp Pulse Resp BP Pulse Ox 98.1 F 80 14 127/61 95 10/28/21 10:57 10/28/21 10:57 10/28/21 10:57 10/28/21 10:57 10/28/21 10:57 - Cardiovascular pedal pulses are diminished and nonpalpable bilateralpitting edema bilateral node digital hair extremities are coolwith thinning of the dermis bilateral - Integumentary Painful thickened dystrophic nailswith mycotic changes to the proximal nail fold 10full-thickness ulceration of the left foot - Neurologic Patient hasgross loss of protective sensations bilateral feetwith diabetic neuropathy to lower leg bilateral - Musculoskeletal decreased range of motion of the ankle joint and subtalar joint and midtarsal joint and metatarsophalangeal joints bilateral all inverters and everters plantarflexed dorsiflexors normal symmetric bilateral Results - Labs 11/01/21 04:17 11/01/21 04:17 Abnormal Lab Results - Last 24 Hours (Table) 11/01/21 11/02/21 11/02/21 Range/Units 20:08 06:40 11:53 POC Glucose (mg/dL) 203 H 115 H 118 H (70-110) mg/dL Urine Protein (Negative) Urine Mucus (None) /hpf 11/02/21 11/02/21 Range/Units 16:21 16:44 POC Glucose (mg/dL) 144 H (70-110) mg/dL Urine Protein 1+ H (Negative) Urine Mucus Rare H (None) /hpf Microbiology - Last 24 Hours (Table) 10/28/21 14:17 Blood Culture - Preliminary Blood No Growth after 120 hours 10/28/21 14:17 Blood Culture - Preliminary Blood No Growth after 120 hours Assessment and Plan Assessment: 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 Patient should be seen for follow-up in the office for diabetic managementto avoid complications such as ulceration is being treated for on today's date. Thank you for this consult
[2021-11-02] MEDS: ATORVASTATIN 20 MG TAB PO SCH (20:38)
[2021-11-02] MEDS: FUROSEMIDE 10 MG/ML 4 ML VIAL IV SCH (20:38)
[2021-11-02 20:52] LABS: Glucose,Whole Blood 187 mg/dL (70-110)
[2021-11-03 06:50] LABS: Glucose,Whole Blood 100 mg/dL (70-110)
[2021-11-03] MEDS: INSULIN ASPART (NovoLOG) 100 UNIT/ML VIAL SQ SCH ×3 (08:11→17:37)
[2021-11-03] MEDS: amLODIPine 10 MG TAB PO SCH (08:24)
[2021-11-03] MEDS: LINAGLIPTIN 5 MG TABLET PO SCH (08:24)
[2021-11-03] MEDS: FUROSEMIDE 10 MG/ML 4 ML VIAL IV SCH (08:24)
[2021-11-03] MEDS: PIPERACILLIN-TAZOBACTAM 3.375 GM in SODIUM CHLORIDE 0.9% 100 ML IVPB SCH ×2 (08:24→15:57)
[2021-11-03] MEDS ORDERED: LOSARTAN 50 MG TAB PO SCH (09:00)
[2021-11-03] MEDS ORDERED: LIDOCAINE 1% PF 10 MG/ML (5 ML AMP) SQ ONE (09:50)
--- NOTE | 2021-11-03 10:38 | IR ---
PICC LINE PLACEMENT: HISTORY: Infection requiring long-term antibiotic therapy PROCEDURE: Ultrasound and fluoroscopic guidance of PICC line placement. COMPLICATIONS: None ANESTHESIA: 1. 1% Lidocaine locally. FINDINGS/TECHNIQUE: The procedure was explained to the patient. The risks, complications, benefits and alternatives were discussed and any questions were answered. Informed consent was obtained. The patient was placed supine on the fluoroscopic table and prepped and draped in the usual sterile fash ion. Utilizing a 21 gauge needle and sonographic and fluoroscopic guidance, access in the right bas ilic vein was achieved and there is placement of a 0.018 guidewire. The vein is patent. A 4-F sheat h was placed over the guidewire. The guidewire and dilator were removed and a 4-F. PICC line was abida isiah through the sheath with the tip at the level of the SVC. The sheath was removed, the catheter wa s flushed and sutured into position. The patient was stable throughout the procedure and remained st able upon discharge from the Department of Radiology. The vein puncture was patent under ultrasound. A puckett scale image was obtained to document patency of the vein punctured. All elements of the maximal barrier technique were utilized. FLUOROSCOPY TIME: 0.2 minutes of fluoroscopy and one image submitted IMPRESSION: Successful PICC line placement under ultrasound and fluoroscopic guidance.
[2021-11-03 10:48] LABS: Glucose,Whole Blood 189 mg/dL (70-110)
--- NOTE | 2021-11-03 10:59 | P.DS ---
Providers Date of admission: 10/28/21 15:29 Expected date of discharge: 11/03/21 Attending physician: Varghese Nielson Consults: 10/28/21 15:32 Consult Physician Routine Consulting Provider: Ngoc Phillips Consult Reason/Comments: Osteomyelitis Do you want consulting provider notified?: Yes, Notify in am 10/29/21 13:24 Consult Physician Routine Consulting Provider: Thai Felix Consult Reason/Comments: left foot wound , debridemnt and deep cultures , PAD Do you want consulting provider notified?: Yes 11/01/21 08:22 Consult Physician Routine Consulting Provider: Adam Escobar Consult Reason/Comments: trim toenails Do you want consulting provider notified?: Yes Primary care physician: Varghese Naga [facility] Course: HISTORY OF PRESENT ILLNESS 86 year old male with a past medical history significant for type 2 diabetes mellitus hypertension atrial fibrillation chronic smoking and a current smoker presenting to the ER for evaluation of a nonhealing wound to the left foot that apparently has been going on for couple of months now patient has been treated with the multiple courses of antibiotics without any improvement, and the patient presented to the hospital, patient denies having any fever or any chills and no fever was noticed on presentation to the hospital patient complaining of pain to the left foot more of a dull aching at times sharp 5-6 out of 10 and no radiation patient multiple small wounds and also respiratory the left foot and a necrotic area to the lateral aspect of his left foot, patient on presentation to hospital was afebrile did have a normal white count, patient did have a x-ray of the foot shows erosive changes distal phalanx second digit suggest Osteomyelitis, patient was started on vancomycin and Rocephin and admitted to the hospital infectious disease was consulted for further management of antibiotic therapy 10/30/2021 Patient is seen and evaluated sitting up in bed; reports some uncontrolled pain post debridement Vital signs are reviewed and remained stable; remains on IV antibiotics in form of Rocephin and daptomycin Laboratory review shows stable WBC of 7.17, hemoglobin 9.6, platelet count of 206, sodium 143, potassium 4.3, BUN/creatinine of 39/1.95 which is improved from 35.5/2.0 yesterday 10/31/2021 Patient is seen and evaluated resting in bed; denies any complaint of chest pain or shortness; complaints of pain to her left foot after debridement Patient is status post surgical debridement of chronic nonhealing left foot ulcer with secondary cellulitis Vital signs are stable with temperature of 98.1, pulse of 90, respiration 18 and blood pressure 127 or 63 with O2 saturation of 94% on room air Lab review shows WBC of 7.71, hemoglobin 9.5, he platelet count of 202, sodium 139, potassium 4.4 BUN/creatinine of 40/1.96 Patient is currently on IV cefepime 2 g every 12 hours and daptomycin; ID has discontinued Rocephin; deep tissue culture reveals enterococcus and Enterobacter 11/01: Patient is status post debridement done by Dr. Felix. He is currently on IV cefepime and daptomycin per Dr. Phillips. Discharge plan is currently to return home with IV antibiotics. Patient may benefit from subacute rehab. All patient's toenails are long and a consult placed with Dr. Escobar. Blood sugars are running between 109 168. Patient has been refusing insulin. Hemoglobin is 9.6. 11/02: Dr. Escobar is in the room today to trim patient's toenails. We will order a PICC line as advised by Dr. Phillips. Antibiotics have now been switched to Zosyn and Dr. Farley will evaluate for discharge antibiotics. Patient is currently on eliquis and last creatinine was 1.9, consult added for nephrology prior to PICC line placement. Anticipate this may take until tomorrow to complete. 11/03: Patient has been cleared by nephrology for placement of PICC line. Renal ultrasound reveals bilateral renal cyst. Cortex appears thin correlate for chronic medical renal disease. PICC line was inserted this morning by Dr. Rodriguez. Dr. Phillips is managing OP IV antibiotics. Patient remains afebrile, heart rate 66, blood pressure 125/64, pulse ox 97% on room air. Patient will be discharged home today in stable condition. DISCHARGE DIAGNOSES 1. 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 2. Diabetes mellitus type 2. 3. Atrial fibrillation. 4. Hypertension. 5. Chronic kidney disease stage IIIB. 6. Hyperlipidemia. DISCHARGE PLAN home with IV antibiotics. Greater than 35 minutes was utilized and coordinating patient's discharge. Impression and plan of care have been directed as dictated by the signing physician. Quyen Portillo nurse practitioner acting as scribe for signing physician. Patient Condition at Discharge: Stable Plan - Discharge Summary New Discharge Prescriptions: No Action sitaGLIPtin [Januvia] 100 mg PO DAILY HYDROcodone/APAP 7.5-325MG [[place] 7.5-325] 1 tab PO Q12H PRN PRN Reason: Pain amLODIPine [Norvasc] 10 mg PO DAILY Rosuvastatin [Crestor] 10 mg PO HS Losartan Potassium 100 mg PO DAILY Furosemide [Lasix] 40 mg PO DAILY Apixaban [Eliquis] 2.5 mg PO DAILY Discharge Medication List Apixaban [Eliquis] 2.5 mg PO DAILY 10/28/21 [History] Furosemide [Lasix] 40 mg PO DAILY 10/28/21 [History] HYDROcodone/APAP 7.5-325MG [[place] 7.5-325] 1 tab PO Q12H PRN 10/28/21 [History] Losartan Potassium 100 mg PO DAILY 10/28/21 [History] Rosuvastatin [Crestor] 10 mg PO HS 10/28/21 [History] amLODIPine [Norvasc] 10 mg PO DAILY 10/28/21 [History] sitaGLIPtin [Januvia] 100 mg PO DAILY 10/28/21 [History] Follow up Appointment(s)/Referral(s): Adam Escobar DPM [STAFF PHYSICIAN] - 1 Week (appt for [place] office [phone] for 2 month follow up) Varghese Nielson MD [Primary Care Provider] - 1-2 days [facility], [NON-STAFF] - As Needed [facility] [NON-STAFF] - As Needed Patient Instructions/Handouts: Osteomyelitis (DC), Incision and Drainage (DC) Activity/Diet/Wound Care/Special Instructions: CALL [facility] PHONE MINDY UPON DISCHARGE [phone]
[2021-11-03 12:24] LABS: African American GFR (CKD) 28 (>60 ml/min/1.73 sqM); Anion Gap 7 mmol/L; Blood Urea Nitrogen 43 mg/dL (9-20); Calcium 8.3 mg/dL (8.4-10.2); Carbon Dioxide 27 mmol/L (22-30); Chloride 107 mmol/L (98-107); Glucose 129 mg/dL (74-99); Non-African American GFR(CKD) 25 (>60 ml/min/1.73 sqM); Potassium 4.1 mmol/L (3.5-5.1); Sodium 141 mmol/L (137-145)
--- NOTE | 2021-11-03 13:03 | P.PN ---
Subjective Patient is seen for follow-up for acute kidney injury. He is maintained on IV Lasix Serum creatinine was 1.9 g/dL yesterday. I do not have labs today. No significant complaints today No shortness of breath nausea or vomiting. Objective - Vital Signs Vital signs: Vital Signs Temp 97.8 F 11/03/21 08:00 Pulse 66 11/03/21 08:00 Resp 18 11/03/21 08:00 BP 125/64 11/03/21 08:00 Pulse Ox 97 11/03/21 08:00 FiO2 Intake & Output 11/02/21 11/03/21 11/03/21 18:59 06:59 18:59 Intake Total 100 118 Output Total 475 800 640 Balance -974 -508 -800 Intake: Intake, IV Titration 100 Amount Piperacillin-Tazobactam 3 100 .375 gm In Sodium Chloride 0.9% 100 ml @ 25 mls/hr IVPB Q8HR CONTRERAS Rx# :[id number] Oral 118 Output: Urine 210 800 640 Post Void Residual 265 Other: Voiding Method Toilet Urinal Urinal # Voids 1 # Bowel Movements 1 - Exam Patient is awake, comfortable, not in any acute distress Examination of the heart S1 and S2 Examination of the lungs bilateral breath sounds are heard no crackles are heard Abdomen is soft nontender Examination lower extremities edema bilaterally 2-3+. Left foot and leg is currently wrapped - Labs CBC & Chem 7: 11/01/21 04:17 11/03/21 11:33 Labs: Abnormal Lab Results - Last 24 Hours (Table) 11/02/21 11/02/21 11/02/21 Range/Units 16:21 16:44 20:46 BUN (9-20) mg/dL Creatinine (0.66-1.25) mg/dL Glucose (74-99) mg/dL POC Glucose (mg/dL) 144 H 187 H (70-110) mg/dL Calcium (8.4-10.2) mg/dL Urine Protein 1+ H (Negative) Urine Mucus Rare H (None) /hpf 11/03/21 11/03/21 Range/Units 10:46 11:33 BUN 43 H (9-20) mg/dL Creatinine 2.31 H (0.66-1.25) mg/dL Glucose 129 H (74-99) mg/dL POC Glucose (mg/dL) 189 H (70-110) mg/dL Calcium 8.3 L (8.4-10.2) mg/dL Urine Protein (Negative) Urine Mucus (None) /hpf Microbiology - Last 24 Hours (Table) 10/28/21 14:17 Blood Culture - Preliminary Blood No Growth after 120 hours 10/28/21 14:17 Blood Culture - Preliminary Blood No Growth after 120 hours Assessment and Plan Assessment: 1. Acute kidney injury, nonoliguric, mostly ATN. Rule out urine retention. UA is quite benign. 2. Chronic kidney disease with previous creatinine 1.4 in 2019, NKF stage IIIa to IIIB. Etiology likely nephrosclerosis. Ultrasound has been ordered and it shows bilateral renal cysts him a no hydronephrosis. 3. Left foot ulcer being followed by infectious disease with concern for osteomyelitis 4. Volume overload 5. Type 2 diabetes Plan: Continue to diurese patient. Consider switching Norvasc to another agent given the significant lower ex tremity edema Continue decrease dose of Cozaar Follow-up on labs. If patient is discharged today he will need close follow-up as outpatient with repeat labs to be done in 3-4 days post discharge. Patient needs to follow-up as outpatient for CK D as well as
[2021-11-03 14:14] VITALS: BP 111/63; PULSE 74; RESP 16; TEMP 97.7
[2021-11-03] MEDS: HYDROcodone/APAP 7.5-325MG 1 EACH TAB PO PRN (15:37)
[2021-11-03 16:44] LABS: Glucose,Whole Blood 122 mg/dL (70-110)
== END 2021-11-03 18:13 | disposition home health service (06) | DRG 623 ==
LOC: EC 10:50 → 4SSUR 15:29
PROVIDERS: ADMIT Internal Medicine Geriatric Medicine; ATTEND Internal Medicine Geriatric Medicine
PROC: 0JBR0ZZ Excision of Left Foot Subcutaneous Tissue and Fascia, Open Approach (ICD-10-PCS; principal; 2021-10-28)
PROC: 02HV33Z Insertion of Infusion Device into Superior Vena Cava, Percutaneous Approach (ICD-10-PCS; 2021-11-03)
PROC: B548ZZA Ultrasonography of Superior Vena Cava, Guidance (ICD-10-PCS; 2021-11-03)
PROC: B5181ZA Fluoroscopy of Superior Vena Cava using Low Osmolar Contrast, Guidance (ICD-10-PCS; 2021-11-03)
DX: E11.69 Type 2 diabetes mellitus with other specified complication (principal); I48.20 Chronic atrial fibrillation, unspecified; M86.8X7 Other osteomyelitis, ankle and foot; L03.116 Cellulitis of left lower limb; B95.2 Enterococcus as the cause of diseases classified elsewhere; B96.89 Other specified bacterial agents as the cause of diseases classified elsewhere; B35.1 Tinea unguium; E11.22 Type 2 diabetes mellitus with diabetic chronic kidney disease; E11.51 Type 2 diabetes mellitus with diabetic peripheral angiopathy without gangrene; E11.621 Type 2 diabetes mellitus with foot ulcer; E11.628 Type 2 diabetes mellitus with other skin complications; E78.5 Hyperlipidemia, unspecified; E87.70 Fluid overload, unspecified; F17.210 Nicotine dependence, cigarettes, uncomplicated; I12.9 Hypertensive chronic kidney disease with stage 1 through stage 4 chronic kidney disease, or unspecified chronic kidney disease; I77.1 Stricture of artery; L97.529 Non-pressure chronic ulcer of other part of left foot with unspecified severity; N18.32 Chronic kidney disease, stage 3b; N17.0 Acute kidney failure with tubular necrosis; N28.1 Cyst of kidney, acquired; Z53.20 Procedure and treatment not carried out because of patient's decision for unspecified reasons; Z79.01 Long term (current) use of anticoagulants; Z79.2 Long term (current) use of antibiotics; Z79.84 Long term (current) use of oral hypoglycemic drugs; Z79.899 Other long term (current) drug therapy; Z86.79 Personal history of other diseases of the circulatory system; Z88.2 Allergy status to sulfonamides; Z91.048 Other nonmedicinal substance allergy status; Z87.19 Personal history of other diseases of the digestive system
CPT/HCPCS: 36415; 36573; 76770; 80048; 80053; 81001; 85025; 85610; 85652; 86140; 87040; 87070; 87075; 87077; 87186; 87205; 96365; 96367; 99285

== ENCOUNTER 2021-11-22 11:21 | Emergency (ER) | payer MEDICARE ==
[2021-11-22 11:40] VITALS: RESP 18; TEMP 97.9
--- NOTE | 2021-11-22 12:18 | ED ---
Recheck HPI - General Chief Complaint: Recheck/Abnormal Lab/Rx Stated Complaint: fall, picc line issue Time Seen by Provider: 11/22/21 11:40 Source: patient, EMS, RN notes reviewed, old records reviewed Mode of arrival: EMS - History of Present Illness Initial Comments: Patient is an 86-year-old male presents the emergency room at the direction of his home care nurse after having his PICC line comfortably. He was receiving home Zosyn infusions for left lower limb cellulitis. His IV infusions were being monitored per Dr. Phillips. He reports that he was having dressing changes completed every day however current dressing intact appears to be greater than 24 hours old. He is complaining of chronic shortness of breath without any changes from baseline otherwise he denies any fevers, chills, chest pain, abdominal pain, nausea or vomiting. His left lower extremity wound has foul odor and serous drainage coming through the dressing. Dressing to be changed and wound to be evaluated. Is a past medical history significant for diabetes, hypertension, hyperlipidemia and atrial fibrillation; he is on Eliquis for his A. fib. He denies any other complaints or concerns at this time; he is somewhat of a poor historian and has no family available at the bedside at this time. - Related Data Home Medications Medication Instructions Recorded Confirmed Apixaban [Eliquis] 2.5 mg PO DAILY 10/28/21 10/28/21 HYDROcodone/APAP 7.5-325MG [Rapidan 1 tab PO Q12H PRN 10/28/21 10/28/21 7.5-325] Rosuvastatin [Crestor] 10 mg PO HS 10/28/21 10/28/21 amLODIPine [Norvasc] 10 mg PO DAILY 10/28/21 10/28/21 sitaGLIPtin [Januvia] 100 mg PO DAILY 10/28/21 10/28/21 Previous Rx's Medication Instructions Recorded Furosemide [Lasix] 40 mg PO BID #60 tab 11/03/21 Losartan [Cozaar] 50 mg PO DAILY #30 tab 11/03/21 Allergies Allergy/AdvReac Type Severity Reaction Status Date / Time nickel Allergy Unknown Verified 11/22/21 14:34 Sulfa (Sulfonamide Allergy Unknown Verified 11/22/21 14:34 Antibiotics) Review of Systems ROS Statement: Those systems with pertinent positive or pertinent negative responses have been documented in the HPI. ROS Other: All systems not noted in ROS Statement are negative. Past Medical History Past Medical History: Atrial Fibrillation, Diabetes Mellitus, Hypertension Additional Past Medical History / Comment(s): AAA History of Any Multi-Drug Resistant Organisms: None Reported Past Surgical History: Appendectomy, Orthopedic Surgery Additional Past Surgical History / Comment(s): abdominal stents from AAA Past Psychological History: No Psychological Hx Reported Smoking Status: Current every day smoker Past Alcohol Use History: None Reported Past Drug Use History: None Reported General Exam General appearance: alert, in no apparent distress Head exam: Present: atraumatic, normocephalic, normal inspection Eye exam: Present: normal appearance, PERRL, EOMI. Absent: scleral icterus, conjunctival injection, periorbital swelling ENT exam: Present: normal exam, mucous membranes moist Neck exam: Present: normal inspection, full ROM Respiratory exam: Present: normal lung sounds bilaterally. Absent: respiratory distress, wheezes, rales, rhonchi, stridor Cardiovascular Exam: Present: regular rate, irregular rhythm, systolic murmur GI/Abdominal exam: Present: soft, normal bowel sounds. Absent: distended, tenderness, guarding, rebound, rigid Rectal exam: Present: deferred Extremities exam: Present: pedal edema, joint swelling Neurological exam: Present: alert, oriented X3 (poor historian) Psychiatric exam: Present: flat affect Skin exam: Present: erythema, other (LLE cellulitis and wound) Course Vital Signs 11/22/21 11/22/21 11:33 13:46 Temperature 97.9 F Pulse Rate 61 67 Respiratory 18 18 Rate Blood Pressure 110/94 102/64 O2 Sat by Pulse 97 98 Oximetry Medical Decision Making - Medical Decision Making Known documented infection being followed by infectious disease. Vital signs are stable. No indication for admission for cellulitis at this time. Will order a PICC line reinsertion. Will change dressings to left lower extremity. Will give dose of Zosyn in the setting of no antibiotics given the last 3 days and unknown PICC line insertion. Will check BMP and CBC. If labs and we will plan for discharge out after PICC line insertion IV antibiotics. Pain with dressing change will give morphine 2 mg IV. No purulent drainage noted. Will order with significant serous drainage. Induration around wounds noted. Mild amount of slough tissue. No necrotic tissue noted. Hemoglobin at 9.8. Chronic kidney disease with improved creatinine from last check with Dr. Phillips previously 2.92 currently 2.49. No indication for admission at this time. Will discharge home with continued follow-up with home health care along with Dr. Phillips. Case discussed with Dr. Reddy. - Lab Data Result diagrams: 11/22/21 12:38 11/22/21 13:40 Lab Results 11/22/21 11/22/21 11/22/21 Range/Units 12:38 12:38 13:40 WBC 8.1 (3.8-10.6) k/uL RBC 3.18 L (4.30-5.90) m/uL Hgb 9.8 L (13.0-17.5) gm/dL Hct 30.9 L (39.0-53.0) % MCV 97.1 (80.0-100.0) fL MCH 30.8 (25.0-35.0) pg MCHC 31.7 (31.0-37.0) g/dL RDW 16.8 H (11.5-15.5) % Plt Count 205 (150-450) k/uL MPV 8.4 Neutrophils % 75 % Lymphocytes % 12 % Monocytes % 7 % Eosinophils % 4 % Basophils % 1 % Neutrophils # 6.0 (1.3-7.7) k/uL Lymphocytes # 1.0 (1.0-4.8) k/uL Monocytes # 0.6 (0-1.0) k/uL Eosinophils # 0.4 (0-0.7) k/uL Basophils # 0.1 (0-0.2) k/uL Hypochromasia Slight Anisocytosis Slight Macrocytosis Slight PT 10.6 (9.0-12.0) sec INR 1.0 (<1.2) Sodium 140 (137-145) mmol/L Potassium 4.8 (3.5-5.1) mmol/L Chloride 106 (98-107) mmol/L Carbon Dioxide 28 (22-30) mmol/L Anion Gap 6 mmol/L BUN 62 H (9-20) mg/dL Creatinine 2.59 H (0.66-1.25) mg/dL Est GFR (CKD-EPI)AfAm 25 (>60 ml/min/1.73 sqM) Est GFR (CKD-EPI)NonAf 21 (>60 ml/min/1.73 sqM) Glucose 108 H (74-99) mg/dL Calcium 8.7 (8.4-10.2) mg/dL Disposition Clinical Impression: Cellulitis and abscess of left lower extremity Disposition: HOME SELF-CARE Condition: Stable Instructions (If sedation given, give patient instructions): Cellulitis (ED), How to Care for Your PICC (Peripherally Inserted Central Catheter) (ED) Additional Instructions: Please continue IV antibiotics per Dr. Freeman's recommendations. Dose of Zosyn given today resumed previous schedule. Continue to change dressings daily. If any symptoms of worsening infection or worsening of kidney function such as naus ea, vomiting, dizziness, confusion, fevers or chills please return to the emergency room immediately. Please return to the Emergency Department if symptoms worsen or any other concerns. Is patient prescribed a controlled substance at d/c from ED?: No Referrals: Varghese Nielson MD [Primary Care Provider] - 1-2 days Time of Disposition: 14:49
[2021-11-22 13:01] LABS: Anisocytosis Slight; Basophils # (A) 0.1 k/uL (0-0.2); Basophils % (A) 1 %; Eosinophils # (A) 0.4 k/uL (0-0.7); Eosinophils % (A) 4 %; HCT 30.9 % (39.0-53.0); HGB 9.8 gm/dL (13.0-17.5); Hypochromasia Slight; Lymphocytes % (A) 12 %; MCH 30.8 pg (25.0-35.0); MCHC 31.7 g/dL (31.0-37.0); MCV 97.1 fL (80.0-100.0); Macrocytosis Slight; Mean Platelet Volume 8.4; Monocytes # (A) 0.6 k/uL (0-1.0); Monocytes % (A) 7 %; Neutrophils % (A) 75 %; Platelet Count 205 k/uL (150-450); RBC 3.18 m/uL (4.30-5.90); RDW 16.8 % (11.5-15.5); WBC 8.1 k/uL (3.8-10.6)
[2021-11-22 13:07] LABS: Prothrombin Time 10.6 sec (9.0-12.0)
[2021-11-22] MEDS ORDERED: PIPERACILLIN-TAZOBACTAM 3.375 GM in SODIUM CHLORIDE 0.9% 100 ML IVPB STA (13:28)
[2021-11-22] MEDS ORDERED: MORPHINE SULFATE 2 MG/ML SYRINGE IVP STA ×2 (13:28→14:23)
[2021-11-22 13:49] VITALS: BP 102/64; PULSE 67
[2021-11-22 13:55] LABS: Calcium 8.7 mg/dL (8.4-10.2); Potassium 4.8 mmol/L (3.5-5.1)
[2021-11-22] MEDS ORDERED: LIDOCAINE 1% INJ 10MG/ML (5 ML VIAL-PF) SQ ONE (14:56)
--- NOTE | 2021-11-23 07:13 | IR ---
PICC LINE PLACEMENT: HISTORY: Infection requiring long-term antibiotic therapy PROCEDURE: Ultrasound and fluoroscopic guidance of PICC line placement. COMPLICATIONS: None ANESTHESIA: 1. 1% Lidocaine locally. FINDINGS/TECHNIQUE: The procedure was explained to the patient. The risks, complications, benefits and alternatives were discussed and any questions were answered. Informed consent was obtained. The patient was placed supine on the fluoroscopic table and prepped and draped in the usual sterile fash ion. Utilizing a 21 gauge needle and sonographic and fluoroscopic guidance, access in the right bas ilic vein was achieved and there is placement of a 0.018 guidewire. The vein is patent. A 4-F sheat h was placed over the guidewire. The guidewire and dilator were removed and a 4-F. PICC line was abida isiah through the sheath with the tip at the level of the SVC. The sheath was removed, the catheter wa s flushed and sutured into position. The patient was stable throughout the procedure and remained st able upon discharge from the Department of Radiology. The vein puncture was patent under ultrasound. A puckett scale image was obtained to document patency of the vein punctured. All elements of the maximal barrier technique were utilized. FLUOROSCOPY TIME: 0.3 minutes and one images submitted IMPRESSION: Successful PICC line placement under ultrasound and fluoroscopic guidance.
== END 2021-11-22 14:53 | disposition home or self-care (01) ==
LOC: CATHCVL 11:21
DX: L03.116 Cellulitis of left lower limb (principal); L02.416 Cutaneous abscess of left lower limb; I10 Essential (primary) hypertension; E11.9 Type 2 diabetes mellitus without complications; F17.200 Nicotine dependence, unspecified, uncomplicated; I48.91 Unspecified atrial fibrillation; Z88.2 Allergy status to sulfonamides; Z88.8 Allergy status to other drugs, medicaments and biological substances; Z79.02 Long term (current) use of antithrombotics/antiplatelets; Z79.899 Other long term (current) drug therapy; Z79.84 Long term (current) use of oral hypoglycemic drugs
CPT/HCPCS: 36573; 80048; 85025; 85610; 96365; 96375; 96376; 99283